=== PATIENT | male | born 1935 | race Caucasian/White ===

== ENCOUNTER 2017-12-07 11:39 | Emergency (ER) | payer MEDICARE ==
[2017-12-07] MEDS ORDERED: Furosemide 40 MG/4 ML VIAL ONE (12:19)
[2017-12-07 12:38] LABS: #Basophils 0.1 thou/uL (0.0-0.2); #Eosinphils 0.1 thou/uL (0.0-0.7); #Lymphocytes 0.9 thou/uL (1.20-3.40); #Monocytes 0.8 thou/uL (0.11-0.59); %Basophils 0.7 % (0.0-1.0); %Eosinophils 1.1 % (0.0-10.0); %Lymphocytes 10.5 % (21.0-51.0); %Monocytes 8.7 % (0.0-10.0); Hemoglobin 14.1 g/dL (14.0-18.0); Mean Corpuscular HGB CONC 33.3 g/dL (32.0-36.0); Mean Corpuscular Hemoglobin 29.1 pg (27.0-31.0); Mean Corpuscular Volume 87.5 fl (80.0-94.0); Mean Platelet Volume 7.4 fL (7.4-10.4); Platelet Count 212 thou/uL (130-400); RBC Distribution Width 12.1 % (11.5-14.5); Red Blood Cell (RBC) Count 4.86 mill/uL (4.70-6.10); White Blood Cell (WBC) Count 8.9 thou/uL (4.8-10.8)
[2017-12-07 12:44] LABS: PTT 29.4 SEC (22.9-36.1); Prothrombin Time 13.7 SEC (12.0-14.7)
[2017-12-07 12:48] LABS: CKMB 1.6 ng/mL (0-6.6); Troponin I Less than 0.010 ng/mL (< 0.028)
[2017-12-07 12:52] LABS: ALT (SGPT) 6 U/L (8-55); AST (SGOT) 17 U/L (5-34); Albumin 3.5 g/dL (3.4-4.8); Alkaline Phosphatase 73 U/L (40-150); Anion Gap 15 mmol/L (10-20); BUN (Urea Nitrogen) 25 mg/dL (8.4-25.7); Bilirubin, Total 0.6 mg/dL (0.2-1.2); CK (CPK) 50 U/L (30-200); Calc. Creatinine Clearance 0 mL/min (70-130); Calcium 8.9 mg/dL (7.8-10.44); Carbon Dioxide 24 mmol/L (23-31); Chloride 100 mmol/L (98-107); Estimated GFR-MDRD 45; Glucose 171 mg/dL (83-110); Potassium 4.1 mmol/L (3.5-5.1); Protein, Total 6.5 g/dL (5.8-8.1); Sodium 135 mmol/L (136-145)
--- NOTE | 2017-12-07 13:03 | RAD ---
CHEST ONE VIEW: HISTORY: Chest pain. COMPARISON: None. FINDINGS: The lungs are clear. No pneumothorax or effusion. The cardiac silhouette and mediastinal contour ar e within normal limits. IMPRESSION: No acute intrathoracic abnormality. POS: [facility]
== END 2017-12-07 13:45 | disposition home or self-care (01) ==
LOC: NAV ERS 11:39
DX: I89.0 Lymphedema, not elsewhere classified (principal); N40.0 Benign prostatic hyperplasia without lower urinary tract symptoms; L03.115 Cellulitis of right lower limb; E66.9 Obesity, unspecified; E11.9 Type 2 diabetes mellitus without complications; E78.5 Hyperlipidemia, unspecified; I10 Essential (primary) hypertension; M19.90 Unspecified osteoarthritis, unspecified site; Z79.84 Long term (current) use of oral hypoglycemic drugs; Z79.899 Other long term (current) drug therapy
CPT/HCPCS: 71045; 80053; 82550; 82553; 83880; 84484; 85025; 85610; 85730; 93005; 94760; 96374; J1940

== ENCOUNTER 2017-12-07 23:51 | Emergency (ER) | payer MEDICARE ==
[2017-12-08] MEDS ORDERED: Tamsulosin HCl 0.4 MG CAP ONE (00:40)
== END 2017-12-08 01:00 | disposition home or self-care (01) ==
LOC: NAV ERS 23:51
DX: R33.9 Retention of urine, unspecified (principal); G20 Parkinson's disease; E11.9 Type 2 diabetes mellitus without complications; E78.5 Hyperlipidemia, unspecified; I10 Essential (primary) hypertension; M19.90 Unspecified osteoarthritis, unspecified site; Z79.899 Other long term (current) drug therapy; Z79.84 Long term (current) use of oral hypoglycemic drugs
CPT/HCPCS: 51702

== ENCOUNTER 2018-03-22 16:00 | Inpatient (IN) | payer MEDICARE ==
[2018-03-22 16:33] VITALS: BMI 30.5
[2018-03-22] MEDS ORDERED: Dextrose 5% in Water 1,000 ML IV PRN (18:23)
[2018-03-22] MEDS ORDERED: Dextrose 50% Abboject 50 ML SYRINGE SLOW IVP PRN (18:23)
[2018-03-22] MEDS ORDERED: HumaLOG 300 UNITS/3 ML VIAL SC PRN (18:23)
[2018-03-22] MEDS: Doxycycline 100 MG CAP PO SCH (20:25)
[2018-03-22] MEDS: Tamsulosin HCl 0.4 MG CAP PO SCH (20:25)
[2018-03-22] MEDS: Ciprofloxacin 500 MG TAB PO SCH (20:25)
[2018-03-22] MEDS: Finasteride 5 MG TAB PO SCH (20:25)
[2018-03-22] MEDS: TROSPIUM 20 MG TABLET PO SCH (20:25)
[2018-03-22] MEDS: Senokot S 8.6-50 MG TAB PO SCH (20:25)
[2018-03-22] MEDS: Carbidopa/Levodopa 25-250 mg Tablet PO SCH (20:25)
[2018-03-22] MEDS: Pravastatin Sodium 40 MG TAB PO SCH (20:26)
[2018-03-22] MEDS: Nystatin Powder 15 GM BOT TOP SCH (20:26)
[2018-03-22] MEDS ORDERED: Famotidine 20 MG TAB PO SCH (21:00)
--- NOTE | 2018-03-23 00:13 | HP ---
CHIEF COMPLAINT: Recent urinary tract infection with bacteremia and cellulitis with resolving acute kidney injury for physical therapy. BRIEF HISTORY: This is a very pleasant 82-year-old male who is a patient of Dr. Lisa Dunaway ey was admitted to [facility] on with gross hematuria and lower abdominal discomfor t. He has a history of chronic indwelling catheter secondary to benign prostatic hypertrophy. He ap parently had the catheter changed a week prior to admission and at home the catheter stopped draining . Apparently, home health adjusted positioning and it started draining again. The day prior to admi ssion, he started noticing hematuria with discomfort and so presented to the emergency room. He was worked up and diagnosed with catheter associated UTI as well as cellulitis of the perineal area along with acute kidney injury on chronic kidney disease stage 3 and admitted to the hospital. He was cameron ated with IV antibiotics. His urine cultures grew Pseudomonas and Klebsiella and he was also seen by Infectious Disease who recommended switching him to oral ciprofloxacin. His renal functions continu ed to improve. He was kept off his metformin and lisinopril. He was deemed to be a candidate for [facility] admission for continuing antibiotic as well as the evaluation by PT and OT. He is resting comforta debi in bed and denies any concerns. He is just finishing up his dinner. His is in the room. H e denies any fever or chills. He denies any chest pain or shortness of breath. Denies any nausea, v omiting or diarrhea. PAST MEDICAL HISTORY: 1. Diabetes mellitus type 2. 2. Hypertension. 3. Dyslipidemia. 4. Parkinson's disease. 5. Degenerative joint disease. 6. History of bladder cancer. 7. Benign prostatic hypertrophy and urinary retention requiring chronic indwelling Fletcher. 8. Gastroesophageal reflux disease. PAST SURGICAL HISTORY: 1. Appendectomy. 2. Bladder cancer removal. 3. Tonsillectomy. 4. Adenoidectomy. 5. Hip surgery. 6. Cholecystectomy. 7. Soft tissue mass excision. ALLERGIES: LEVAQUIN. It is more like calf muscle cramping more of an adverse reaction than a true a llergy. FAMILY HISTORY: Positive for hypertension, diabetes mellitus, and cerebrovascular accident. PSYCHOSOCIAL HISTORY: No tobacco or alcohol abuse. He lives at home with his . MEDICATIONS: He has been transferred here on the following medications; 1. Sinemet 25/250 one tablet t.i.d. 2. Ciprofloxacin 500 mg p.o. b.i.d. until 04/01/2018. 3. Doxycycline 100 mg p.o. b.i.d. until 03/27/2018. 4. Pepcid 20 mg b.i.d. 5. Proscar 5 mg daily. 6. Amaryl 0.5 mg p.o. t.i.d. 7. Zestril 2.5 mg daily. 8. Procardia-XL 30 mg daily. 9. MiraLax 17 grams in 8 ounces of water daily. 10. Pravachol 40 mg daily. 11. Florastor 250 mg daily. 12. Senokot-S 1 tablet b.i.d. 13. Flomax 0.4 mg daily. 14. Trospium 20 mg b.i.d. REVIEW OF SYSTEMS: CARDIOVASCULAR SYSTEM: Denies any chest pain, shortness of breath, palpitations, paroxysmal nocturna l dyspnea, orthopnea, pedal edema. RESPIRATORY SYSTEM: Denies any chronic cough, expectoration or pleuritic chest pain. GASTROINTESTINAL SYSTEM: Denies any nausea, vomiting, diarrhea, constipation, hematemesis, melena, h ematochezia. GENITOURINARY SYSTEM: Denies any frequency, urgency, dysuria, hematuria, except for this recent epis ode. CENTRAL NERVOUS SYSTEM: Generalized weakness and tremors. HEENT: No difficulty with speech. He is hard of hearing. No difficulty with swallowing. SKIN: De nies any rash. PHYSICAL EXAMINATION: GENERAL APPEARANCE: This is a pleasant 82-year-old male in no apparent distress. He respo nds appropriately to questions. He is just finishing his dinner. His is in the room. VITAL SIGNS: He is afebrile, heart rate 76, respirations 20, oxygen saturation 94% on room air, bloo d pressure 126/60. HEENT: Normocephalic, atraumatic. Pupils are equal and reactive to light and accommodation. NECK: No JVD, thyromegaly or adenopathy, throat exudates or carotid bruits. CARDIOVASCULAR SYSTEM: S1, S2 plus, rate and rhythm regular. RESPIRATORY SYSTEM: Normal vesicular breath sounds in all lung villeda. ABDOMEN: Soft, nontender, bowel sounds heard in all quadrants. EXTREMITIES: Without cyanosis or clubbing. Trace edema. CENTRAL NERVOUS SYSTEM: Patrolling tremor is present. Generalized weakness. Fletcher catheter in plac e. LABORATORY DATA: Blood sugar is 137. Other laboratory values are pending, but from the other hospit al, last CBC was done on 03/20/2018 and white count was 8.8, hemoglobin and hematocrit is 12.7 and 39 .4. Last chemistry was also done on 03/20/2018. Sodium 139, potassium 4.3, BUN and creatinine is 18 and 1.32, creatinine was as high as 1.88. IMPRESSION: 1. Resolving Pseudomonas and Klebsiella urinary tract infection. 2. Resolving perineal cellulitis. 3. Diabetes mellitus type 2. 4. Hypertension. 5. Dyslipidemia. 6. Benign prostatic hypertrophy. 7. Chronic urinary retention requiring Fletcher catheter. 8. Gastroesophageal reflux disease. 9. Parkinson's. 10. Deconditioning. PLAN: 1. Continue current medications. 2. Nutritional support with 1800 calorie Heart healthy ADA diet. 3. Accu-Cheks with sliding scale coverage. 4. Deep venous thrombosis and stress ulcer prophylaxis. 5. Decubitus precautions. 6. Consult physical therapy and occupational therapy. 7. Fletcher catheter care. 8. Decubitus precautions. 9. CBC and BMP in the morning. 10. Anticipate resuming his metformin in the morning if his creatinine continues to be below 1.4. D iscussed with the patient and in detail and all questions answered. Discussed with nursing as chu iqbal.
[2018-03-23] MEDS: Ciprofloxacin 500 MG TAB PO SCH ×2 (05:10→20:02)
[2018-03-23 06:08] LABS: #Basophils 0.1 thou/uL (0.0-0.2); #Eosinphils 0.8 thou/uL (0.0-0.7); #Lymphocytes 1.4 thou/uL (1.20-3.40); #Monocytes 0.8 thou/uL (0.11-0.59); #Neutrophils 5.6 thou/uL (1.40-6.50); %Basophils 0.6 % (0.0-1.0); %Eosinophils 8.7 % (0.0-10.0); %Lymphocytes 16.6 % (21.0-51.0); %Monocytes 9.5 % (0.0-10.0); %Neutrophils 64.6 % (42.0-75.0); Hemoglobin 12.4 g/dL (14.0-18.0); Mean Corpuscular HGB CONC 31.9 g/dL (32.0-36.0); Mean Corpuscular Hemoglobin 28.3 pg (27.0-31.0); Mean Corpuscular Volume 88.6 fL (78.0-98.0); Mean Platelet Volume 5.9 fL (7.4-10.4); Platelet Count 384 thou/uL (130-400); RBC Distribution Width 12.4 % (11.5-14.5); Red Blood Cell (RBC) Count 4.37 mill/uL (4.70-6.10); White Blood Cell (WBC) Count 8.7 thou/uL (4.8-10.8)
[2018-03-23 06:15] LABS: Anion Gap 13 mmol/L (10-20); BUN (Urea Nitrogen) 16 mg/dL (8.4-25.7); Calc. Creatinine Clearance 58 mL/min (70-130); Calcium 8.6 mg/dL (7.8-10.44); Carbon Dioxide 25 mmol/L (23-31); Chloride 107 mmol/L (98-107); Estimated GFR-MDRD 48; Glucose 131 mg/dL (83-110); Potassium 3.8 mmol/L (3.5-5.1); Sodium 141 mmol/L (136-145)
[2018-03-23] MEDS ORDERED: Lisinopril 5 MG TAB PO SCH (09:00)
[2018-03-23] MEDS: Senokot S 8.6-50 MG TAB PO SCH ×2 (09:22→20:02)
[2018-03-23] MEDS: Doxycycline 100 MG CAP PO SCH ×2 (09:22→20:01)
[2018-03-23] MEDS: Carbidopa/Levodopa 25-250 mg Tablet PO SCH ×3 (09:22→20:03)
[2018-03-23] MEDS: Saccharomyces boulardii 250 MG CAP PO SCH (09:22)
[2018-03-23] MEDS: Polyethylene Glycol 3350 17 GM Packet PO SCH (09:22)
[2018-03-23] MEDS: Glimepiride 2 MG TAB PO SCH ×3 (09:22→20:02)
[2018-03-23] MEDS: TROSPIUM 20 MG TABLET PO SCH ×2 (09:23→20:01)
[2018-03-23] MEDS: NIFEdipine XL 30 MG TAB PO SCH (09:23)
[2018-03-23] MEDS: Nystatin Powder 15 GM BOT TOP SCH ×2 (09:25→20:04)
--- NOTE | 2018-03-23 09:26 | PRG ---
DATE OF SERVICE: 03/23/2018 SUBJECTIVE: Mr. Severino is doing well except for some heartburn. He apparently was told by his graciela rologist to not take any Tums or Rolaids, but stick with medicines like Zantac or Pepcid. I advised him that he is on Pepcid and he got it last night. He is tolerating his Fletcher catheter. No blood. No other complaints. No family at bedside. OBJECTIVE: VITAL SIGNS: He is afebrile, heart rate 81, respirations 20, oxygen saturation 96% on room air, bloo d pressure 139/67. CARDIOVASCULAR: S1, S2 plus. RESPIRATORY SYSTEM: Normal vesicular breath sounds. ABDOMEN: Soft, nontender, bowel sounds heard in all quadrants. EXTREMITIES: Without cyanosis or clubbing. CENTRAL NERVOUS SYSTEM: Generalized weakness. LABORATORY VALUES: White count is 8.7, H&H is 12.4 and 38.7. Sodium 141, potassium 3.8, BUN and cre atinine 16 and 1.40. Blood sugars are 137, 199, 113 and 131. IMPRESSION: 1. Chronic kidney disease stage 2. 2. Diabetes mellitus type 2, well controlled. 3. Hypertension. 4. Dyslipidemia. 5. Parkinson's disease. 6. Benign prostatic hypertrophy with chronic urinary retention requiring Fletcher catheter. 7. History of bladder cancer. 8. Gastroesophageal reflux disease. PLAN: 1. Increase Pepcid to b.i.d. 2. Continue 1800 calorie Heart healthy ADA diet. 3. DVT and stress ulcer prophylaxis. 4. Decubitus precautions. 5. Routine laboratory values. 6. Physical therapy and occupational therapy. 7. Discussed with patient in detail. All questions answered.
[2018-03-23] MEDS ORDERED: Famotidine 20 MG TAB PO SCH (09:30)
[2018-03-23] MEDS: Famotidine 20 MG TAB PO SCH (20:01)
[2018-03-23] MEDS: Finasteride 5 MG TAB PO SCH (20:02)
[2018-03-23] MEDS: Tamsulosin HCl 0.4 MG CAP PO SCH (20:02)
[2018-03-23] MEDS: Pravastatin Sodium 40 MG TAB PO SCH (20:03)
[2018-03-24] MEDS: Ciprofloxacin 500 MG TAB PO SCH ×2 (05:22→20:31)
[2018-03-24] MEDS: Doxycycline 100 MG CAP PO SCH ×2 (09:26→20:30)
[2018-03-24] MEDS: Famotidine 20 MG TAB PO SCH ×2 (09:26→20:31)
[2018-03-24] MEDS: Nystatin Powder 15 GM BOT TOP SCH ×2 (09:26→20:31)
[2018-03-24] MEDS: Carbidopa/Levodopa 25-250 mg Tablet PO SCH ×3 (09:26→20:30)
[2018-03-24] MEDS: Polyethylene Glycol 3350 17 GM Packet PO SCH (09:26)
[2018-03-24] MEDS: Saccharomyces boulardii 250 MG CAP PO SCH (09:26)
[2018-03-24] MEDS: NIFEdipine XL 30 MG TAB PO SCH (09:26)
[2018-03-24] MEDS: TROSPIUM 20 MG TABLET PO SCH ×2 (09:27→20:30)
[2018-03-24] MEDS: Senokot S 8.6-50 MG TAB PO SCH ×2 (09:27→20:31)
[2018-03-24] MEDS: Glimepiride 2 MG TAB PO SCH ×3 (09:27→20:30)
--- NOTE | 2018-03-24 13:49 | PRG ---
DATE OF SERVICE: 03/24/2018 SUBJECTIVE: Mr. Severino is up in his bed. He denies any complaints. His and daughter are in the room. His main concern is constipation. He is also having a rash on his back and again the main issue is that he lays on his back most of the day and there is really not enough circulation going o nto his skin. OBJECTIVE: VITAL SIGNS: He is afebrile, heart rate is 86, respirations 20, oxygen saturation 95% on room air, b lood pressure 127/63. CARDIOVASCULAR SYSTEM: S1, S2 plus. RESPIRATORY SYSTEM: Normal vesicular breath sounds. ABDOMEN: Soft, nontender, bowel sounds heard in all quadrants. EXTREMITIES: Without cyanosis or clubbing. CENTRAL NERVOUS SYSTEM: Generalized weakness, some rigidity is present. LABORATORY VALUES: Blood sugars are 174, 116, 205, 110 and 139. Examination of the back does show a maculopapular rash consistent with more of an irritant dermatitis. IMPRESSION: 1. Resolving urinary and cellulitis. 2. Renal insufficiency. 3. Diabetes mellitus type 2, well controlled. 4. Constipation. 5. Dyslipidemia. 6. Parkinson's disease. 7. Benign prostatic hypertrophy with urinary retention. PLAN: 1. Add Dulcolax suppository. 2. Continue 1800 calorie Heart healthy ADA diet. 3. DVT and stress ulcer prophylaxis. 4. Decubitus precautions. 5. Accu-Cheks and sliding scale coverage. 6. Routine laboratory values. 7. Discussed with patient and family in detail. All questions answered.
[2018-03-24] MEDS: Bisacodyl 10 MG SUPP PR PRN (14:27)
[2018-03-24] MEDS: Tamsulosin HCl 0.4 MG CAP PO SCH (20:30)
[2018-03-24] MEDS: Pravastatin Sodium 40 MG TAB PO SCH (20:31)
[2018-03-24] MEDS: Finasteride 5 MG TAB PO SCH (20:31)
[2018-03-25] MEDS: Ciprofloxacin 500 MG TAB PO SCH ×2 (05:50→20:02)
[2018-03-25] MEDS: Doxycycline 100 MG CAP PO SCH ×2 (09:05→20:02)
[2018-03-25] MEDS: TROSPIUM 20 MG TABLET PO SCH ×2 (09:05→20:02)
[2018-03-25] MEDS: NIFEdipine XL 30 MG TAB PO SCH (09:05)
[2018-03-25] MEDS: Carbidopa/Levodopa 25-250 mg Tablet PO SCH ×3 (09:05→20:02)
[2018-03-25] MEDS: Saccharomyces boulardii 250 MG CAP PO SCH (09:05)
[2018-03-25] MEDS: Polyethylene Glycol 3350 17 GM Packet PO SCH (09:05)
[2018-03-25] MEDS: Senokot S 8.6-50 MG TAB PO SCH ×2 (09:05→20:02)
[2018-03-25] MEDS: Glimepiride 2 MG TAB PO SCH ×3 (09:05→20:02)
[2018-03-25] MEDS: Famotidine 20 MG TAB PO SCH ×2 (09:05→20:02)
[2018-03-25] MEDS: Nystatin Powder 15 GM BOT TOP SCH ×2 (09:06→19:59)
--- NOTE | 2018-03-25 13:07 | PRG ---
DATE OF SERVICE: 03/25/2018 SUBJECTIVE: Mr. Sevreino is doing well. Denies any complaints, resting comfortably. He did have a good bowel movement. No family at bedside, discussed with nursing. OBJECTIVE: VITAL SIGNS: He is afebrile, heart rate is 85, respirations 18, oxygen saturation 93% on room air, b lood pressure 126/67. CARDIOVASCULAR: S1, S2 plus. RESPIRATORY SYSTEM: Normal vesicular breath sounds. ABDOMEN: Soft, nontender, bowel sounds heard in all quadrants. EXTREMITIES: Without cyanosis or clubbing. His back rash is improved. We are continuing to use a m oisturizing lotion. LABORATORY VALUES: Blood sugars are 127, 170, 91, and 136. IMPRESSION: 1. Resolving urinary tract infection. 2. Resolving cellulitis. 3. Diabetes mellitus type 2. 4. Parkinson's disease. 5. Resolved constipation. 6. Deconditioning. PLAN: 1. Continue current medications. 2. Nutritional support. 3. DVT and stress ulcer prophylaxis. 4. Decubitus precautions. 5. Bowel regimen. 6. Monitor blood sugar. 7. Discussed with patient in detail. All questions answered. Continue therapy.
[2018-03-25] MEDS: Finasteride 5 MG TAB PO SCH (20:02)
[2018-03-25] MEDS: Tamsulosin HCl 0.4 MG CAP PO SCH (20:02)
[2018-03-25] MEDS: Pravastatin Sodium 40 MG TAB PO SCH (20:03)
[2018-03-26] MEDS: Ciprofloxacin 500 MG TAB PO SCH ×2 (06:32→20:47)
[2018-03-26] MEDS: Carbidopa/Levodopa 25-250 mg Tablet PO SCH ×3 (08:37→20:53)
[2018-03-26] MEDS: Doxycycline 100 MG CAP PO SCH ×2 (08:38→20:54)
[2018-03-26] MEDS: Glimepiride 2 MG TAB PO SCH ×3 (08:38→20:47)
[2018-03-26] MEDS: Famotidine 20 MG TAB PO SCH (08:38)
[2018-03-26] MEDS: NIFEdipine XL 30 MG TAB PO SCH (08:39)
[2018-03-26] MEDS: Senokot S 8.6-50 MG TAB PO SCH ×2 (08:40→20:47)
[2018-03-26] MEDS: Saccharomyces boulardii 250 MG CAP PO SCH (08:40)
[2018-03-26] MEDS: Nystatin Powder 15 GM BOT TOP SCH ×2 (08:40→20:48)
[2018-03-26] MEDS: Polyethylene Glycol 3350 17 GM Packet PO SCH (08:40)
[2018-03-26] MEDS: TROSPIUM 20 MG TABLET PO SCH ×2 (08:40→20:54)
--- NOTE | 2018-03-26 14:44 | PRG ---
DATE OF SERVICE: 03/26/2018 SUBJECTIVE: Mr. Sevreino is doing well. He is working with therapy. His is in the room. She would prefer him to take the ranitidine OTC instead of the Pepcid and I advised her to just bring it from home and have the nurses give it to him. No other concerns or questions. OBJECTIVE: VITAL SIGNS: He is afebrile, heart rate 75, respirations 18, oxygen saturation 95% on room air, bloo d pressure 132/63. CARDIOVASCULAR: S1, S2 plus. RESPIRATORY SYSTEM: Normal vesicular breath sounds. ABDOMEN: Soft, nontender, bowel sounds heard in all quadrants. EXTREMITIES: Without cyanosis or clubbing. CENTRAL NERVOUS SYSTEM: Generalized weakness. LABORATORY VALUES: Blood sugars are 136, 129, 178, 91 and 138. IMPRESSION: 1. Resolving urinary tract infection and cellulitis. 2. Parkinson's disease. 3. Diabetes mellitus type 2. 4. Resolved constipation. 5. Renal insufficiency. 6. Deconditioning. PLAN: 1. Continue current medications. 2. A 1800 calorie heart healthy ADA diet. 3. Accu-Cheks with sliding scale coverage. 4. Continue antibiotics until the full course is done. 5. Monitor blood sugars. 6. Physical therapy. 7. Bowel regimen. 8. Routine laboratory values. I discussed with the patient and in detail. All questions answered.
[2018-03-26] MEDS: RANITIDINE 150 MG PO SCH (16:47)
[2018-03-26] MEDS: Finasteride 5 MG TAB PO SCH (20:47)
[2018-03-26] MEDS: Tamsulosin HCl 0.4 MG CAP PO SCH (20:48)
[2018-03-26] MEDS: Pravastatin Sodium 40 MG TAB PO SCH (20:54)
[2018-03-27 05:23] LABS: #Basophils 0.1 thou/uL (0.0-0.2); #Eosinphils 0.9 thou/uL (0.0-0.7); #Monocytes 0.9 thou/uL (0.11-0.59); #Neutrophils 4.7 thou/uL (1.40-6.50); %Basophils 1.4 % (0.0-1.0); %Eosinophils 10.2 % (0.0-10.0); %Monocytes 10.7 % (0.0-10.0); %Neutrophils 54.8 % (42.0-75.0); Mean Corpuscular HGB CONC 31.9 g/dL (32.0-36.0); Mean Corpuscular Hemoglobin 28.3 pg (27.0-31.0); Mean Corpuscular Volume 88.6 fL (78.0-98.0); Mean Platelet Volume 5.7 fL (7.4-10.4); Platelet Count 426 thou/uL (130-400); RBC Distribution Width 12.7 % (11.5-14.5); Red Blood Cell (RBC) Count 4.61 mill/uL (4.70-6.10); White Blood Cell (WBC) Count 8.6 thou/uL (4.8-10.8)
[2018-03-27 05:35] LABS: Anion Gap 11 mmol/L (10-20); BUN (Urea Nitrogen) 20 mg/dL (8.4-25.7); Calc. Creatinine Clearance 55 mL/min (70-130); Calcium 9.1 mg/dL (7.8-10.44); Carbon Dioxide 26 mmol/L (23-31); Chloride 106 mmol/L (98-107); Estimated GFR-MDRD 45; Glucose 87 mg/dL (83-110); Potassium 4.3 mmol/L (3.5-5.1); Sodium 139 mmol/L (136-145)
[2018-03-27] MEDS: Ciprofloxacin 500 MG TAB PO SCH ×2 (05:44→20:43)
[2018-03-27] MEDS: Carbidopa/Levodopa 25-250 mg Tablet PO SCH ×3 (08:53→20:43)
[2018-03-27] MEDS: Doxycycline 100 MG CAP PO SCH ×2 (08:53→20:43)
[2018-03-27] MEDS: NIFEdipine XL 30 MG TAB PO SCH (08:54)
[2018-03-27] MEDS: Polyethylene Glycol 3350 17 GM Packet PO SCH (08:54)
[2018-03-27] MEDS: Saccharomyces boulardii 250 MG CAP PO SCH (08:54)
[2018-03-27] MEDS: Glimepiride 2 MG TAB PO SCH ×3 (08:54→20:43)
[2018-03-27] MEDS: TROSPIUM 20 MG TABLET PO SCH ×2 (08:55→20:44)
[2018-03-27] MEDS: Senokot S 8.6-50 MG TAB PO SCH ×2 (08:55→20:44)
[2018-03-27] MEDS: Nystatin Powder 15 GM BOT TOP SCH ×2 (08:57→20:44)
--- NOTE | 2018-03-27 13:28 | PRG ---
DATE OF SERVICE: 03/27/2018 SUBJECTIVE: Mr. Severino is doing well. He just finished his lunch. No family at bedside, discusse d with nursing. OBJECTIVE: VITAL SIGNS: He is afebrile, heart rate is 76, respirations 20, oxygen saturation 94% on room air, b lood pressure 130/69. CARDIOVASCULAR: S1, S2 plus. RESPIRATORY SYSTEM: Normal vesicular breath sounds. ABDOMEN: Soft, obese, nontender. Bowel sounds heard in all quadrants. EXTREMITIES: Without cyanosis or clubbing. CENTRAL NERVOUS SYSTEM: Improving deconditioning. : Fletcher catheter in place and a Fletcher bag with no evidence for hematuria. LABORATORY VALUES: Blood sugars are 109, 136, 135. Electrolytes: Sodium 139, potassium 4.3, BUN an d creatinine 20 and 1.48. White count is 8.6, H&H is 13 and 40.9. IMPRESSION: 1. Chronic kidney disease stage 3. 2. Diabetes mellitus type 2, well controlled. 3. Dyslipidemia. 4. Benign prostatic hypertrophy. 5. Parkinson's disease. 6. Deconditioning. PLAN: 1. Continue current medications. 2. Keep him off his metformin and lisinopril. 3. Accu-Cheks with sliding scale coverage. 4. Deep venous thrombosis and stress ulcer prophylaxis. 5. Decubitus precautions. 6. Routine laboratory values. 7. Nutritional support. 8. Physical therapy and occupational therapy. 9. Discussed with patient and nursing in detail and all questions answered.
[2018-03-27] MEDS: RANITIDINE 150 MG PO SCH (17:44)
[2018-03-27] MEDS: Finasteride 5 MG TAB PO SCH (20:44)
[2018-03-27] MEDS: Tamsulosin HCl 0.4 MG CAP PO SCH (20:44)
[2018-03-27] MEDS: Pravastatin Sodium 40 MG TAB PO SCH (20:44)
[2018-03-28] MEDS: Ciprofloxacin 500 MG TAB PO SCH ×2 (05:44→20:17)
[2018-03-28] MEDS: TROSPIUM 20 MG TABLET PO SCH ×2 (09:48→20:20)
[2018-03-28] MEDS: Carbidopa/Levodopa 25-250 mg Tablet PO SCH ×3 (09:48→20:18)
[2018-03-28] MEDS: Glimepiride 2 MG TAB PO SCH ×3 (09:49→20:18)
[2018-03-28] MEDS: Saccharomyces boulardii 250 MG CAP PO SCH (09:49)
[2018-03-28] MEDS: NIFEdipine XL 30 MG TAB PO SCH (09:49)
[2018-03-28] MEDS: Nystatin Powder 15 GM BOT TOP SCH ×2 (09:51→20:19)
[2018-03-28] MEDS: Polyethylene Glycol 3350 17 GM Packet PO SCH (09:51)
[2018-03-28] MEDS: Senokot S 8.6-50 MG TAB PO SCH ×2 (09:51→20:19)
[2018-03-28] MEDS: RANITIDINE 150 MG PO SCH (17:17)
[2018-03-28] MEDS: Finasteride 5 MG TAB PO SCH (20:18)
[2018-03-28] MEDS: Pravastatin Sodium 20 MG TAB PO SCH (20:19)
[2018-03-28] MEDS: Tamsulosin HCl 0.4 MG CAP PO SCH (20:19)
[2018-03-29] MEDS: Ciprofloxacin 500 MG TAB PO SCH ×2 (05:22→20:05)
[2018-03-29] MEDS: Saccharomyces boulardii 250 MG CAP PO SCH (08:57)
[2018-03-29] MEDS: Carbidopa/Levodopa 25-250 mg Tablet PO SCH ×3 (08:57→20:05)
[2018-03-29] MEDS: Senokot S 8.6-50 MG TAB PO SCH ×2 (08:57→20:06)
[2018-03-29] MEDS: TROSPIUM 20 MG TABLET PO SCH ×2 (08:57→20:07)
[2018-03-29] MEDS: NIFEdipine XL 30 MG TAB PO SCH (08:57)
[2018-03-29] MEDS: Glimepiride 2 MG TAB PO SCH ×2 (08:58→14:56)
[2018-03-29] MEDS: Polyethylene Glycol 3350 17 GM Packet PO SCH (08:59)
[2018-03-29] MEDS: Bisacodyl 10 MG SUPP PR PRN (08:59)
[2018-03-29] MEDS: Nystatin Powder 15 GM BOT TOP SCH ×2 (08:59→20:06)
--- NOTE | 2018-03-29 13:08 | PRG ---
DATE OF SERVICE: 03/29/2018 SUBJECTIVE: Mr. Severino is up in his chair, just finishing his lunch. His is in the room. He denies any concerns except for some knee pain with therapy. He apparently has been diagnosed with s evere DJD and he has had multiple steroid injections in his knees. He apparently was told that he wa s not a good surgical candidate. states that he is still not strong enough to go home. He has not been discharged by physical therapy yet. I advised her to go to the weekly meeting next Monday and depending upon his progress, we can plan on his discharge either to home or to a [facility] facility. OBJECTIVE: VITAL SIGNS: He is afebrile, heart rate 87, respirations 19, oxygen saturation 96% on room air, bloo d pressure 129/65. CARDIOVASCULAR: S1, S2 plus. RESPIRATORY: Normal vesicular breath sounds. ABDOMEN: Soft, nontender, bowel sounds heard in all quadrants. EXTREMITIES: Without cyanosis or clubbing. Peripheral pulses are palpable. CENTRAL NERVOUS SYSTEM: Generalized weakness. LABORATORY VALUES: His blood sugars are 93, 100, 139, 81 and 105. IMPRESSION: 1. Resolving urinary tract infection and cellulitis. 2. Parkinson's disease. 3. Diabetes mellitus type 2. 4. 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 5. Dyslipidemia. 6. Hypertension. 7. Benign prostatic hypertrophy and urinary retention requiring Fletcher catheter. PLAN: 1. Continue physical therapy and occupational therapy. 2. Accu-Cheks with sliding scale coverage. 3. 1800-calorie heart healthy ADA diet. 4. DVT and stress ulcer prophylaxis. 5. Fletcher catheter care. 6. Nutritional support. 7. Discussed with the patient and in detail. All questions answered.
[2018-03-29] MEDS: RANITIDINE 150 MG PO SCH (17:46)
[2018-03-29] MEDS: Finasteride 5 MG TAB PO SCH (20:05)
[2018-03-29] MEDS: Pravastatin Sodium 20 MG TAB PO SCH (20:06)
[2018-03-29] MEDS: Tamsulosin HCl 0.4 MG CAP PO SCH (20:06)
[2018-03-30] MEDS: Ciprofloxacin 500 MG TAB PO SCH ×2 (05:30→20:45)
[2018-03-30] MEDS: Saccharomyces boulardii 250 MG CAP PO SCH (08:45)
[2018-03-30] MEDS: Carbidopa/Levodopa 25-250 mg Tablet PO SCH ×3 (08:45→20:45)
[2018-03-30] MEDS: Polyethylene Glycol 3350 17 GM Packet PO SCH (08:45)
[2018-03-30] MEDS: Glimepiride 2 MG TAB PO SCH ×3 (08:45→16:49)
[2018-03-30] MEDS: NIFEdipine XL 30 MG TAB PO SCH (08:46)
[2018-03-30] MEDS: TROSPIUM 20 MG TABLET PO SCH ×2 (08:46→20:45)
[2018-03-30] MEDS: Nystatin Powder 15 GM BOT TOP SCH ×2 (08:46→20:46)
[2018-03-30] MEDS: Senokot S 8.6-50 MG TAB PO SCH ×2 (08:46→20:45)
[2018-03-30] MEDS: RANITIDINE 150 MG PO SCH (16:49)
[2018-03-30] MEDS: Pravastatin Sodium 20 MG TAB PO SCH (20:45)
[2018-03-30] MEDS: Finasteride 5 MG TAB PO SCH (20:45)
[2018-03-30] MEDS: Tamsulosin HCl 0.4 MG CAP PO SCH (20:45)
[2018-03-31] MEDS: Acetaminophen 500 MG TAB PO PRN ×4 (01:56→20:25)
[2018-03-31] MEDS: Ciprofloxacin 500 MG TAB PO SCH ×2 (05:29→20:25)
[2018-03-31] MEDS: NIFEdipine XL 30 MG TAB PO SCH (09:11)
[2018-03-31] MEDS: Carbidopa/Levodopa 25-250 mg Tablet PO SCH ×3 (09:11→20:24)
[2018-03-31] MEDS: Glimepiride 2 MG TAB PO SCH ×3 (09:11→17:40)
[2018-03-31] MEDS: Saccharomyces boulardii 250 MG CAP PO SCH (09:12)
[2018-03-31] MEDS: TROSPIUM 20 MG TABLET PO SCH ×2 (09:12→20:24)
[2018-03-31] MEDS: Polyethylene Glycol 3350 17 GM Packet PO SCH (09:12)
[2018-03-31] MEDS: Senokot S 8.6-50 MG TAB PO SCH ×2 (09:12→20:24)
[2018-03-31] MEDS: Nystatin Powder 15 GM BOT TOP SCH ×2 (09:22→20:25)
[2018-03-31] MEDS: HumaLOG 300 UNITS/3 ML VIAL SC PRN (11:40)
--- NOTE | 2018-03-31 15:32 | PRG ---
DATE OF SERVICE: 03/31/2018 SUBJECTIVE: Mr. Severino is doing well, sleeping, but arousable. Denies any concerns or questions. No family at bedside. OBJECTIVE: VITAL SIGNS: He is afebrile, heart rate 89, respirations 20, oxygen saturation 93% on room air, bloo d pressure 138/65. CARDIOVASCULAR: S1, S2 plus. RESPIRATORY: Normal vesicular breath sounds. ABDOMEN: Soft, nontender. Bowel sounds heard in all quadrants. EXTREMITIES: Without cyanosis or clubbing. CENTRAL NERVOUS SYSTEM: Parkinson's with generalized weakness. IMPRESSION: 1. Resolving urinary tract infection and cellulitis. 2. He is finishing his last day of antibiotic ciprofloxacin tomorrow. He is done with his doxycycli ne. 3. Diabetes mellitus type 2. 4. Hypertension. 5. Dyslipidemia. 6. Parkinson's disease. 7. Benign prostatic hypertrophy. PLAN: 1. Continue current medications. 2. Nutritional support. 3. 1800-calorie heart healthy ADA diet. 4. DVT and stress ulcer prophylaxis. 5. Decubitus precautions. 6. Routine laboratory values. 7. Discussed with patient and nursing in detail. His blood sugars are excellent at 138, 120, 134 an d 107.
[2018-03-31] MEDS: RANITIDINE 150 MG PO SCH (17:40)
[2018-03-31] MEDS: Tamsulosin HCl 0.4 MG CAP PO SCH (20:24)
[2018-03-31] MEDS: Pravastatin Sodium 20 MG TAB PO SCH (20:24)
[2018-03-31] MEDS: Finasteride 5 MG TAB PO SCH (20:25)
[2018-04-01] MEDS: Ciprofloxacin 500 MG TAB PO SCH ×2 (05:49→20:22)
[2018-04-01] MEDS: Carbidopa/Levodopa 25-250 mg Tablet PO SCH ×3 (08:49→20:22)
[2018-04-01] MEDS: Glimepiride 2 MG TAB PO SCH ×3 (08:49→16:41)
[2018-04-01] MEDS: Nystatin Powder 15 GM BOT TOP SCH ×2 (08:50→20:23)
[2018-04-01] MEDS: NIFEdipine XL 30 MG TAB PO SCH (08:50)
[2018-04-01] MEDS: Acetaminophen 500 MG TAB PO PRN (08:50)
[2018-04-01] MEDS: TROSPIUM 20 MG TABLET PO SCH ×2 (08:50→20:22)
[2018-04-01] MEDS: Senokot S 8.6-50 MG TAB PO SCH ×2 (08:50→20:22)
[2018-04-01] MEDS: Polyethylene Glycol 3350 17 GM Packet PO SCH (08:50)
[2018-04-01] MEDS: Saccharomyces boulardii 250 MG CAP PO SCH (08:50)
--- NOTE | 2018-04-01 15:48 | PRG ---
DATE OF SERVICE: 04/01/2018 SUBJECTIVE: Mr. Severino is doing well. He continues to complain of pain in his right elbow, it is more on the inside. No redness, no warmth. He states that he is having pain with extreme flexion. No family at bedside. OBJECTIVE: VITAL SIGNS: He is afebrile, heart rate is 77, respirations 18, oxygen saturation 93% on room air, b lood pressure 119/59. CARDIOVASCULAR: S1, S2 plus. RESPIRATORY SYSTEM: Normal vesicular breath sounds. ABDOMEN: Soft, nontender, bowel sounds heard in all quadrants. EXTREMITIES: Without cyanosis or clubbing. Right elbow examination shows some tenderness to the med ial aspect of his elbow. No significant warmth. CENTRAL NERVOUS SYSTEM: Generalized weakness with some pill rolling tremor. GENITOURINARY: Fletcher catheter in place. LABORATORY VALUES: Blood sugars are 112, 126, 80 and 121. IMPRESSION: 1. Possible right elbow tendinitis. 2. Diabetes mellitus type 2. 3. Hypertension. 4. Parkinson's disease. 5. Resolving urinary and cellulitis. Last date of Cipro is today. 6. Deconditioning. PLAN: 1. Trial of meloxicam 7.5 mg b.i.d. 2. Continue 1800 calorie Heart healthy ADA diet. 3. Accu-Cheks with sliding scale coverage. 4. Fletcher catheter care. 5. Deep venous thrombosis and stress ulcer prophylaxis. 6. Decubitus precautions. 7. Continue physical therapy. 8. Discussed with patient and nursing in detail. All questions answered.
[2018-04-01] MEDS: RANITIDINE 150 MG PO SCH (16:41)
[2018-04-01] MEDS: Pravastatin Sodium 20 MG TAB PO SCH (20:22)
[2018-04-01] MEDS: Meloxicam 7.5 MG TAB PO SCH (20:22)
[2018-04-01] MEDS: Finasteride 5 MG TAB PO SCH (20:22)
[2018-04-01] MEDS: Tamsulosin HCl 0.4 MG CAP PO SCH (20:22)
[2018-04-02] MEDS: Polyethylene Glycol 3350 17 GM Packet PO SCH (08:44)
[2018-04-02] MEDS: Glimepiride 2 MG TAB PO SCH ×3 (08:44→17:08)
[2018-04-02] MEDS: Carbidopa/Levodopa 25-250 mg Tablet PO SCH ×3 (08:44→20:42)
[2018-04-02] MEDS: Saccharomyces boulardii 250 MG CAP PO SCH (08:44)
[2018-04-02] MEDS: Senokot S 8.6-50 MG TAB PO SCH ×2 (08:44→20:43)
[2018-04-02] MEDS: NIFEdipine XL 30 MG TAB PO SCH (08:44)
[2018-04-02] MEDS: Nystatin Powder 15 GM BOT TOP SCH ×2 (08:45→20:44)
[2018-04-02] MEDS: Meloxicam 7.5 MG TAB PO SCH ×2 (08:45→20:43)
[2018-04-02] MEDS: TROSPIUM 20 MG TABLET PO SCH ×2 (08:45→20:43)
[2018-04-02] MEDS: Bisacodyl 10 MG SUPP PR PRN (13:05)
--- NOTE | 2018-04-02 13:06 | PRG ---
DATE OF SERVICE: 04/02/2018 SUBJECTIVE: Mr. Severino is doing well. He states that his right elbow is much improved. The Melox icam is helping. He does complain of constipation and nursing is going to give him a suppository. N o family at bedside. OBJECTIVE: VITAL SIGNS: He is afebrile, heart rate 74, respirations 18, oxygen saturation 95% on room air, bloo d pressure 118/58. CARDIOVASCULAR: S1, S2 plus. RESPIRATORY SYSTEM: Normal vesicular breath sounds. ABDOMEN: Soft, nontender, bowel sounds heard in all quadrants. EXTREMITIES: Without cyanosis or clubbing. Peripheral pulses are palpable. CENTRAL NERVOUS SYSTEM: Generalized weakness. LABORATORY VALUES: Blood sugars are 122, 1389, 95 and 142. IMPRESSION: 1. Improving right elbow tendinitis. 2. Diabetes mellitus type 2, well controlled. 3. Parkinson's disease. 4. Resolved urinary tract infection and cellulitis. 5. Hypertension. 6. Dyslipidemia. 7. Deconditioning. PLAN: 1. Continue current medications. 2. Nutritional support. 3. Bowel regimen. 4. DVT and stress ulcer prophylaxis. 5. Decubitus precautions. 6. Accu-Cheks with sliding scale coverage. 7. 1800 calorie heart healthy ADA diet. 8. Continue physical therapy and occupational therapy. 9. Meloxicam for 5 days with food. 10. Discussed with patient and nursing in detail and all questions answered.
[2018-04-02] MEDS: RANITIDINE 150 MG PO SCH (17:08)
[2018-04-02] MEDS: HumaLOG 300 UNITS/3 ML VIAL SC PRN (17:49)
[2018-04-02] MEDS: Finasteride 5 MG TAB PO SCH (20:42)
[2018-04-02] MEDS: Tamsulosin HCl 0.4 MG CAP PO SCH (20:43)
[2018-04-02] MEDS: Pravastatin Sodium 20 MG TAB PO SCH (20:43)
[2018-04-03] MEDS: Saccharomyces boulardii 250 MG CAP PO SCH (08:03)
[2018-04-03] MEDS: Polyethylene Glycol 3350 17 GM Packet PO SCH (08:03)
[2018-04-03] MEDS: Meloxicam 7.5 MG TAB PO SCH ×2 (08:03→20:34)
[2018-04-03] MEDS: Glimepiride 2 MG TAB PO SCH ×3 (08:03→16:19)
[2018-04-03] MEDS: TROSPIUM 20 MG TABLET PO SCH ×2 (08:04→20:35)
[2018-04-03] MEDS: NIFEdipine XL 30 MG TAB PO SCH (08:04)
[2018-04-03] MEDS: Senokot S 8.6-50 MG TAB PO SCH ×2 (08:04→20:35)
[2018-04-03] MEDS: Carbidopa/Levodopa 25-250 mg Tablet PO SCH ×3 (08:04→20:34)
[2018-04-03] MEDS: Nystatin Powder 15 GM BOT TOP SCH ×2 (08:04→20:35)
[2018-04-03] MEDS: RANITIDINE 150 MG PO SCH (16:19)
[2018-04-03] MEDS: Finasteride 5 MG TAB PO SCH (20:34)
[2018-04-03] MEDS: Tamsulosin HCl 0.4 MG CAP PO SCH (20:35)
[2018-04-03] MEDS: Pravastatin Sodium 20 MG TAB PO SCH (20:35)
[2018-04-04] MEDS: Carbidopa/Levodopa 25-250 mg Tablet PO SCH ×3 (08:05→20:38)
[2018-04-04] MEDS: NIFEdipine XL 30 MG TAB PO SCH (08:05)
[2018-04-04] MEDS: Glimepiride 2 MG TAB PO SCH ×3 (08:05→16:37)
[2018-04-04] MEDS: Meloxicam 7.5 MG TAB PO SCH ×2 (08:05→20:39)
[2018-04-04] MEDS: Polyethylene Glycol 3350 17 GM Packet PO SCH (08:06)
[2018-04-04] MEDS: TROSPIUM 20 MG TABLET PO SCH ×2 (08:06→20:40)
[2018-04-04] MEDS: Saccharomyces boulardii 250 MG CAP PO SCH (08:06)
[2018-04-04] MEDS: Senokot S 8.6-50 MG TAB PO SCH ×2 (08:06→20:39)
[2018-04-04] MEDS: Nystatin Powder 15 GM BOT TOP SCH ×2 (08:06→20:39)
[2018-04-04] MEDS: RANITIDINE 150 MG PO SCH (16:37)
[2018-04-04] MEDS: Finasteride 5 MG TAB PO SCH (20:38)
[2018-04-04] MEDS: Pravastatin Sodium 20 MG TAB PO SCH (20:39)
[2018-04-04] MEDS: Tamsulosin HCl 0.4 MG CAP PO SCH (20:39)
[2018-04-05] MEDS: Glimepiride 2 MG TAB PO SCH ×3 (08:40→17:05)
[2018-04-05] MEDS: Carbidopa/Levodopa 25-250 mg Tablet PO SCH ×3 (08:40→20:37)
[2018-04-05] MEDS: Saccharomyces boulardii 250 MG CAP PO SCH (08:41)
[2018-04-05] MEDS: Nystatin Powder 15 GM BOT TOP SCH ×2 (08:41→20:40)
[2018-04-05] MEDS: Senokot S 8.6-50 MG TAB PO SCH ×2 (08:41→20:38)
[2018-04-05] MEDS: Polyethylene Glycol 3350 17 GM Packet PO SCH (08:41)
[2018-04-05] MEDS: TROSPIUM 20 MG TABLET PO SCH ×2 (08:41→20:37)
[2018-04-05] MEDS: NIFEdipine XL 30 MG TAB PO SCH (08:41)
[2018-04-05] MEDS: Meloxicam 7.5 MG TAB PO SCH ×2 (08:42→20:38)
[2018-04-05] MEDS: RANITIDINE 150 MG PO SCH (17:05)
--- NOTE | 2018-04-05 18:32 | PRG ---
DATE OF SERVICE: 04/04/2018 SUBJECTIVE: The patient is an elderly male with a history of severe deconditioning, hypertension, di abetes, Parkinson disease who has been slowly improving with therapy, feeling much better at this warren e with increasing strength, cooperating well. OBJECTIVE: VITAL SIGNS: Blood pressure is 145/70, O2 sats 93% on room air, respirations 18, temperature 97.5, p ulse 83. LUNGS: Clear. CARDIAC: Shows regular rhythm. ABDOMEN: Soft and nontender. SKIN AND EXTREMITIES: Show tender right elbow which is improving. NEUROLOGICAL: No focal findings. ASSESSMENT: 1. Stable type 2 diabetes. 2. Stable Parkinson disease. 3. Resolved urinary tract infection. 4. Severe deconditioning, slowly improving. PLAN: Continue PT, OT. Continue Accu-Cheks to monitor and titrate controlled diabetes. Continue DV T, stress ulcer prophylaxis. Continue Meloxicam course to finish treatment of tendonitis.
--- NOTE | 2018-04-05 19:12 | PRG ---
DATE OF SERVICE: 04/05/2018 SUBJECTIVE: The patient feels well, increased strength, sitting in the bed, eating supper. States t hat he did walk 23 feet today. Did complain of constipation and requiring suppositories and has very large hemorrhoids. Does not complain of any further of his right elbow pain. OBJECTIVE: VITAL SIGNS: Shows temperature is 98.1, pulse 68, respirations 18, O2 sats 93% on room air, blood pr essure 110/58. Accu-Cheks range from 75-160. LUNGS: Clear. CARDIAC: Shows regular rhythm. ABDOMEN: Soft and nontender. GENITOURINARY: Shows Fletcher catheter in place. There is stage I injury of the perineal area with no real decubitus. ASSESSMENT: 1. Resolving deconditioning. 2. Stable diabetes. 3. Chronic Parkinson disease limiting therapy. 4. Urinary tract infection with Fletcher catheter still in place secondary to urinary retention, benign prostatic hypertrophy. PLAN: 1. Continue PT and OT. 2. BP urinalysis and culture, CBC and comp metabolic. 3. Continue Accu-Cheks. 4. Monitor and titrate and control diabetes. 6. Continue barrier cream to perineal. 7. Continue blood pressure control.
[2018-04-05] MEDS: Pravastatin Sodium 20 MG TAB PO SCH (20:38)
[2018-04-05] MEDS: Tamsulosin HCl 0.4 MG CAP PO SCH (20:38)
[2018-04-05] MEDS: Finasteride 5 MG TAB PO SCH (20:38)
[2018-04-06 06:24] LABS: #Basophils 0.1 thou/uL (0.0-0.2); #Eosinphils 1.3 thou/uL (0.0-0.7); #Lymphocytes 1.6 thou/uL (1.20-3.40); #Monocytes 0.7 thou/uL (0.11-0.59); #Neutrophils 2.8 thou/uL (1.40-6.50); %Eosinophils 20.7 % (0.0-10.0); %Lymphocytes 24.9 % (21.0-51.0); %Monocytes 10.7 % (0.0-10.0); %Neutrophils 42.8 % (42.0-75.0); Hemoglobin 11.6 g/dL (14.0-18.0); Mean Corpuscular HGB CONC 32.2 g/dL (32.0-36.0); Mean Corpuscular Volume 86.8 fL (78.0-98.0); Mean Platelet Volume 6.3 fL (7.4-10.4); Platelet Count 293 thou/uL (130-400); Red Blood Cell (RBC) Count 4.15 mill/uL (4.70-6.10); White Blood Cell (WBC) Count 6.4 thou/uL (4.8-10.8)
[2018-04-06 06:35] LABS: ALT (SGPT) 6 U/L (8-55); AST (SGOT) 25 U/L (5-34); Albumin 3.1 g/dL (3.4-4.8); Alkaline Phosphatase 66 U/L (40-150); Anion Gap 10 mmol/L (10-20); BUN (Urea Nitrogen) 19 mg/dL (8.4-25.7); Bilirubin, Total 0.4 mg/dL (0.2-1.2); Calc. Creatinine Clearance 63 mL/min (70-130); Calcium 8.3 mg/dL (7.8-10.44); Carbon Dioxide 22 mmol/L (23-31); Chloride 108 mmol/L (98-107); Estimated GFR-MDRD 53; Globulin 2.6 g/dL (2.4-3.5); Glucose 91 mg/dL (83-110); Potassium 4.1 mmol/L (3.5-5.1); Protein, Total 5.7 g/dL (5.8-8.1); Sodium 136 mmol/L (136-145)
[2018-04-06] MEDS: Polyethylene Glycol 3350 17 GM Packet PO SCH (08:18)
[2018-04-06] MEDS: TROSPIUM 20 MG TABLET PO SCH ×2 (08:18→20:06)
[2018-04-06] MEDS: Glimepiride 2 MG TAB PO SCH ×3 (08:18→17:50)
[2018-04-06] MEDS: NIFEdipine XL 30 MG TAB PO SCH (08:19)
[2018-04-06] MEDS: Nystatin Powder 15 GM BOT TOP SCH ×2 (08:19→20:09)
[2018-04-06] MEDS: Senokot S 8.6-50 MG TAB PO SCH ×2 (08:19→20:07)
[2018-04-06] MEDS: Carbidopa/Levodopa 25-250 mg Tablet PO SCH ×3 (08:19→20:07)
[2018-04-06] MEDS: Saccharomyces boulardii 250 MG CAP PO SCH (08:21)
--- NOTE | 2018-04-06 14:08 | PRG ---
DATE OF SERVICE: 04/06/[address] Lee Smith. SUBJECTIVE: The patient feels well, sitting up in the bed, has been cooperating with therapy with no complaints, feels like he is getting stronger. He is having no further perineal tenderness. OBJECTIVE: VITAL SIGNS: Blood pressure is 133/63, O2 sats 93%, respirations 20, pulse 75, afebrile. LUNGS: Clear. CARDIAC: Shows regular rhythm. ABDOMEN: Soft, nontender. LABORATORY DATA: White count 6400, hematocrit 36, hemoglobin 11. Sodium 136, potassium 4.1, chlorid e 108, bicarbonate 22, BUN 19, creatinine 1.29, albumin 3.1. Accu-Cheks range 83-159. ASSESSMENT: 1. Improving deconditioning. 2. Stable type 2 diabetes. 3. Resolved tendonitis available. 4. Stage I perineal irritation, improving. 5. Parkinson disease, stable. 6. Hypertension, stable. PLAN: 1. Continue PT, OT. 2. Continue perineal care. 3. Continue Accu-Cheks to monitor and titrate and control diabetes.
[2018-04-06] MEDS: RANITIDINE 150 MG PO SCH (17:50)
[2018-04-06] MEDS: Finasteride 5 MG TAB PO SCH (20:07)
[2018-04-06] MEDS: Pravastatin Sodium 20 MG TAB PO SCH (20:07)
[2018-04-06] MEDS: Tamsulosin HCl 0.4 MG CAP PO SCH (20:07)
--- NOTE | 2018-04-07 07:58 | PRG ---
DATE OF SERVICE: 04/07/2018 DATE OF ADMISSION: 03/22/2018 HISTORY OF PRESENT ILLNESS: Mr. Severino is a very pleasant 82-year-old white male, admitted to [facility] with gross hematuria and lower abdominal pain. He had a catheter-associated urinary tract infection as well as cellulitis of the perineal area and acute on chronic kidney disease. He w as admitted to [facility] and treated with IV antibiotics and grew out Pseudomonas and Klebs iella. Eventually, he was stabilized and transferred to [facility] for swing bed to continue his antibiotics and for PT and OT. SUBJECTIVE: The patient states he is doing well and has no complaints today. He states he is eating well. He is comfortable and is working hard with therapy. PHYSICAL EXAMINATION: VITAL SIGNS: Today, reveal blood pressure 138/68, pulse 75, respirations 18, O2 sat 95% on room air, T-max 98.2. GENERAL: This is a well-developed, well-nourished, slightly obese white male, in no apparent distres s at this time. HEENT: Reveals normocephalic, nontraumatic cranium. Pupils equally round and reactive. Extraocular movements intact. Nose and throat are slightly dry. NECK: Supple, without mass, nodes, or bruits. LUNGS: Chest is clear to auscultation. No rales, no rhonchi, no wheezes are heard. CARDIOVASCULAR: Reveals a regular rate and rhythm without murmurs, gallops, or rubs. ABDOMEN: Soft, obese, nontender, without organomegaly, normal bowel sounds are noted. No rebound or guarding is noted. GENITOURINARY EXAM: Deferred. EXTREMITIES: Reveal no clubbing, cyanosis, or edema. Bacterial culture on the buttock's drainage was noted to grow out Pseudomonas and sensitivities are i n progress. LABORATORY DATA: Laboratory reveals white count 6400, hemoglobin 11.6, hematocrit 36.0, platelet cou nt 293,000. Chemistry reveals sodium 136, potassium 4.1, chloride 108, carbon dioxide 22 with a BUN of 19, creatinine 1.29. Point of care sugars reveal yesterday morning sugar was 83, before lunch 115 , before supper 111, before bedtime 147. IMPRESSION: 1. Generalized weakness, improved. 2. Stable type 2 diabetes. 3. Tendinitis, resolved. 4. Stage 1 perineal irritation, improving. 5. Parkinson's disease, stable. 6. Hypertension, stable. PLAN: 1. Continue PT and OT. 2. Continue perineal care. 3. Await culture and sensitivities of the patient's buttocks lesion with drainage. 4. Continue Accu-Cheks a.c. and at bedtime. 5. Stress ulcer prophylaxis. 6. Decubitus precautions. 7. DVT prophylaxis.
[2018-04-07] MEDS: TROSPIUM 20 MG TABLET PO SCH ×2 (08:20→20:07)
[2018-04-07] MEDS: Senokot S 8.6-50 MG TAB PO SCH ×2 (08:20→20:06)
[2018-04-07] MEDS: NIFEdipine XL 30 MG TAB PO SCH (08:20)
[2018-04-07] MEDS: Carbidopa/Levodopa 25-250 mg Tablet PO SCH ×3 (08:20→20:07)
[2018-04-07] MEDS: Nystatin Powder 15 GM BOT TOP SCH ×2 (08:20→20:08)
[2018-04-07] MEDS: Glimepiride 2 MG TAB PO SCH ×3 (08:20→17:28)
[2018-04-07] MEDS: Saccharomyces boulardii 250 MG CAP PO SCH (08:20)
[2018-04-07] MEDS: Polyethylene Glycol 3350 17 GM Packet PO SCH (08:21)
[2018-04-07] MEDS ORDERED: RENALLY ADJUST CEFEPIME IVPB PRN (12:42)
[2018-04-07] MEDS: Cefepime 2 GM in Sodium Chloride 0.9% 100 ML IVPB SCH (13:08)
[2018-04-07] MEDS: RANITIDINE 150 MG PO SCH (17:29)
[2018-04-07] MEDS: Finasteride 5 MG TAB PO SCH (20:07)
[2018-04-07] MEDS: Tamsulosin HCl 0.4 MG CAP PO SCH (20:07)
[2018-04-07] MEDS: Pravastatin Sodium 20 MG TAB PO SCH (20:07)
[2018-04-08] MEDS: Cefepime 2 GM in Sodium Chloride 0.9% 100 ML IVPB SCH ×2 (01:24→12:43)
--- NOTE | 2018-04-08 07:22 | PRG ---
DATE OF SERVICE: 04/08/2018 DATE OF ADMISSION: 03/22/2018 HISTORY OF PRESENT ILLNESS: Mr. Severino is a very pleasant 82-year-old white male, initially seen a [facility] with lower abdominal pain and gross hematuria. He was found to have a catheter -associated UTI and cellulitis of the perineal area. He also had significant acute on chronic renal insufficiency. He was treated with IV antibiotics, which grew out Pseudomonas and Klebsiella. He wa s eventually transferred to [facility] for swing bed, continue his antibiotics and hi s PT and OT. Yesterday, the patient developed some diarrhea and we have given him some Imodium. The patient's perineal oozing came back with Pseudomonas, not sensitive to Cipro, so the patient's Ci pro was stopped. He was started on cefepime 2 grams IV q.12 hours. OBJECTIVE: VITAL SIGNS: Today, reveal blood pressure 122/59, pulse 68-83, respirations 18-20, O2 sat 95%-97% on room air, T-max 97.7. GENERAL: This is a well-developed, well-nourished, slightly obese white male, in no apparent distres s at this time. HEENT: Reveals normocephalic, nontraumatic cranium. The pupils are equally round and reactive. Ext raocular movements intact. Nose and throat are clear, but dry. NECK: Supple, without mass, nodes, or bruits. LUNGS: Chest is clear to auscultation. No rales, rhonchi, wheezes, or cough is heard. HEART: Reveals a regular rate and rhythm without murmurs, gallops, or rubs. ABDOMEN: Obese. It is soft, nontender, without organomegaly. Normal bowel sounds are noted in all 4 quadrants. No rebound or guarding is noted. No hyperactive bowel sounds are noted. The patient s tates his diarrhea is resolved. EXAM: Deferred. EXTREMITIES: Reveal no clubbing, cyanosis, or edema. Fletcher catheter reveals his urine is absolutely completely clear. ASSESSMENT: 1. Generalized weakness. 2. Stable type 2 diabetes. 3. Tendinitis, resolved. 4. Perineal irritation and cellulitis, presently on cefepime 2 grams IV q.12 hours. 5. Parkinson disease, stable. 6. Hypertension, stable. PLAN: 1. Continue perineal care. 2. Discontinue the patient's Cipro for his buttocks' lesions. 3. Start cefepime 2 grams IV q.12 hours. 4. Continue Accu-Cheks a.c. and at bedtime. 5. Continue stress ulcer prophylaxis. 6. Decubitus precautions. 7. Deep venous thrombosis prophylaxis.
[2018-04-08] MEDS: NIFEdipine XL 30 MG TAB PO SCH (08:40)
[2018-04-08] MEDS: Carbidopa/Levodopa 25-250 mg Tablet PO SCH ×3 (08:40→20:37)
[2018-04-08] MEDS: TROSPIUM 20 MG TABLET PO SCH ×2 (08:40→20:37)
[2018-04-08] MEDS: Glimepiride 2 MG TAB PO SCH ×3 (08:40→17:02)
[2018-04-08] MEDS: Nystatin Powder 15 GM BOT TOP SCH ×2 (08:41→20:38)
[2018-04-08] MEDS: Senokot S 8.6-50 MG TAB PO SCH ×2 (08:42→20:39)
[2018-04-08] MEDS: Polyethylene Glycol 3350 17 GM Packet PO SCH (08:42)
[2018-04-08] MEDS: Saccharomyces boulardii 250 MG CAP PO SCH (08:42)
[2018-04-08] MEDS: RANITIDINE 150 MG PO SCH (17:02)
[2018-04-08] MEDS: Finasteride 5 MG TAB PO SCH (20:37)
[2018-04-08] MEDS: Tamsulosin HCl 0.4 MG CAP PO SCH (20:37)
[2018-04-08] MEDS: Pravastatin Sodium 20 MG TAB PO SCH (20:37)
[2018-04-09] MEDS: Cefepime 2 GM in Sodium Chloride 0.9% 100 ML IVPB SCH ×2 (01:20→12:03)
[2018-04-09] MEDS: Glimepiride 2 MG TAB PO SCH ×3 (08:39→17:00)
[2018-04-09] MEDS: Carbidopa/Levodopa 25-250 mg Tablet PO SCH ×3 (08:39→21:12)
[2018-04-09] MEDS: NIFEdipine XL 30 MG TAB PO SCH (08:39)
[2018-04-09] MEDS: Nystatin Powder 15 GM BOT TOP SCH ×2 (08:40→21:12)
[2018-04-09] MEDS: Polyethylene Glycol 3350 17 GM Packet PO SCH (08:40)
[2018-04-09] MEDS: Saccharomyces boulardii 250 MG CAP PO SCH (08:40)
[2018-04-09] MEDS: Senokot S 8.6-50 MG TAB PO SCH ×2 (08:41→21:11)
[2018-04-09] MEDS: TROSPIUM 20 MG TABLET PO SCH ×2 (08:41→21:12)
--- NOTE | 2018-04-09 13:51 | PRG ---
DATE OF SERVICE: 04/09/2018 SUBJECTIVE: Mr. Severino is doing well. His right elbow is pretty much back to normal. He is loyda ating therapy and apparently walked about 40 feet. His spouse is in the room. He is on Maxipime IV due to Pseudomonas growing from his buttock decubitus. No fever or chills. No other concerns or que stions. OBJECTIVE: VITAL SIGNS: He is afebrile, heart rate 70, respirations 20, oxygen saturation 94% on room air, bloo d pressure 123/61. CARDIOVASCULAR: S1, S2 plus. RESPIRATORY SYSTEM: Normal vesicular breath sounds. ABDOMEN: Soft, nontender, bowel sounds heard in all quadrants, obese. EXTREMITIES: Without cyanosis or clubbing. CENTRAL NERVOUS SYSTEM: Improving deconditioning. LABORATORY VALUES: Blood sugars are 106, 107, 115, 143, 83 and 116. IMPRESSION: 1. Pseudomonas in his buttock decubitus/excoriation. He is on cefepime. We will switch him to oral antibiotic in the next day or two. 2. Diabetes mellitus type 2, well controlled. 3. Parkinson's disease. 4. Hypertension. 5. Dyslipidemia. 6. Deconditioning. 7. Resolved right elbow tendinitis. PLAN: 1. Continue current medications. 2. Nutritional support. 3. DVT and stress ulcer prophylaxis. 4. Decubitus precautions. 5. Accu-Cheks with sliding scale coverage. 6. 1800 calorie heart healthy ADA diet. 7. Continue physical therapy. 8. Local care for wound. 9. I discussed with the patient and spouse in detail. All questions answered.
[2018-04-09] MEDS: RANITIDINE 150 MG PO SCH (17:01)
[2018-04-09] MEDS: Tamsulosin HCl 0.4 MG CAP PO SCH (21:12)
[2018-04-09] MEDS: Finasteride 5 MG TAB PO SCH (21:12)
[2018-04-09] MEDS: Pravastatin Sodium 20 MG TAB PO SCH (21:12)
[2018-04-10] MEDS: Cefepime 2 GM in Sodium Chloride 0.9% 100 ML IVPB SCH ×2 (01:32→13:47)
[2018-04-10] MEDS: NIFEdipine XL 30 MG TAB PO SCH (08:32)
[2018-04-10] MEDS: Carbidopa/Levodopa 25-250 mg Tablet PO SCH ×3 (08:32→20:09)
[2018-04-10] MEDS: Glimepiride 2 MG TAB PO SCH ×3 (08:32→16:37)
[2018-04-10] MEDS: Polyethylene Glycol 3350 17 GM Packet PO SCH (08:33)
[2018-04-10] MEDS: Saccharomyces boulardii 250 MG CAP PO SCH (08:33)
[2018-04-10] MEDS: Senokot S 8.6-50 MG TAB PO SCH ×2 (08:33→20:09)
[2018-04-10] MEDS: TROSPIUM 20 MG TABLET PO SCH ×2 (08:33→20:09)
[2018-04-10] MEDS: Nystatin Powder 15 GM BOT TOP SCH ×2 (08:33→20:10)
--- NOTE | 2018-04-10 13:26 | PRG ---
DATE OF SERVICE: 04/10/2018 SUBJECTIVE: Mr. Severino is doing well. Denies any complaints, resting comfortably, tolerating his antibiotics. Denies any fever or chills. Family is up in the weekly conference. OBJECTIVE: VITAL SIGNS: He is afebrile, heart rate is 77, respirations 18, oxygen saturation 93% on room air, b lood pressure 151/68. CARDIOVASCULAR: S1, S2 plus. RESPIRATORY SYSTEM: Normal vesicular breath sounds. ABDOMEN: Soft, obese, nontender. Bowel sounds heard in all quadrants. EXTREMITIES: Without cyanosis or clubbing. CENTRAL NERVOUS SYSTEM: Improving deconditioning. LABORATORY VALUES: Blood sugars are 116, 95, 136, 94 and 128. IMPRESSION: 1. Resolved urinary tract infection and cellulitis. 2. Abrasion of the buttock with Pseudomonas, on IV antibiotics. We will switch him to oral antibiot ics from tomorrow. 3. Diabetes mellitus type 2, well controlled. 4. Hypertension. 5. Dyslipidemia. 6. Parkinson's disease. 7. Deconditioning. PLAN: 1. Continue current medications. 2. Nutritional support. 3. 1800 calorie heart healthy ADA diet. 4. Accu-Cheks with sliding scale coverage. 5. Wound care. 6. DVT and stress ulcer prophylaxis. 7. Decubitus precautions. 8. Continue therapy. 9. Discussed with patient and nursing in detail and all questions answered.
[2018-04-10] MEDS: RANITIDINE 150 MG PO SCH (16:37)
[2018-04-10] MEDS: Tamsulosin HCl 0.4 MG CAP PO SCH (20:09)
[2018-04-10] MEDS: Pravastatin Sodium 20 MG TAB PO SCH (20:09)
[2018-04-10] MEDS: Finasteride 5 MG TAB PO SCH (20:09)
[2018-04-11] MEDS: Cefepime 2 GM in Sodium Chloride 0.9% 100 ML IVPB SCH ×2 (01:45→13:12)
[2018-04-11] MEDS: Saccharomyces boulardii 250 MG CAP PO SCH (08:53)
[2018-04-11] MEDS: Glimepiride 2 MG TAB PO SCH ×3 (08:53→17:57)
[2018-04-11] MEDS: Senokot S 8.6-50 MG TAB PO SCH ×2 (08:53→20:05)
[2018-04-11] MEDS: Carbidopa/Levodopa 25-250 mg Tablet PO SCH ×3 (08:53→20:04)
[2018-04-11] MEDS: TROSPIUM 20 MG TABLET PO SCH ×2 (08:53→20:04)
[2018-04-11] MEDS: NIFEdipine XL 30 MG TAB PO SCH (08:53)
[2018-04-11] MEDS: Nystatin Powder 15 GM BOT TOP SCH ×2 (08:54→20:05)
[2018-04-11] MEDS: Polyethylene Glycol 3350 17 GM Packet PO SCH (08:54)
--- NOTE | 2018-04-11 13:57 | PRG ---
DATE OF SERVICE: 04/11/2018 SUBJECTIVE: Mr. Severino is doing the same. Denies any complaints. Resting comfortably, tolerating his therapy. Discussed with nursing and he still needs at least 1 person to help him get him out of the bed, sometimes more than one. No family at bedside. OBJECTIVE: VITAL SIGNS: He is afebrile, heart rate 72, respirations 20, oxygen saturation 96% on room air, bloo d pressure 144/68. CARDIOVASCULAR: S1, S2 plus. RESPIRATORY SYSTEM: Normal vesicular breath sounds. ABDOMEN: Soft, nontender, bowel sounds heard in all quadrants, obese. EXTREMITIES: Without cyanosis or clubbing. Trace edema. Peripheral pulses are palpable. CENTRAL NERVOUS SYSTEM: Improving deconditioning, but slow. LABORATORY VALUES: Blood sugars are 137, 128, 77, and 115. IMPRESSION: 1. Diabetes mellitus type 2. 2. Hypertension. 3. Dyslipidemia. 4. Parkinson's disease. 5. Pseudomonas in his buttock wound. 6. Deconditioning. PLAN: 1. Continue current medications. 2. Nutritional support. 3. Fletcher catheter care. 4. Accu-Cheks with sliding scale coverage. 5. Continue IV cefepime. 6. Continue physical therapy. 7. Case management for discharge planning. 8. Discussed with the patient and nursing in detail. All questions answered.
[2018-04-11] MEDS: RANITIDINE 150 MG PO SCH (17:57)
[2018-04-11] MEDS: Pravastatin Sodium 20 MG TAB PO SCH (20:04)
[2018-04-11] MEDS: Finasteride 5 MG TAB PO SCH (20:04)
[2018-04-11] MEDS: Tamsulosin HCl 0.4 MG CAP PO SCH (20:04)
[2018-04-12] MEDS: Cefepime 2 GM in Sodium Chloride 0.9% 100 ML IVPB SCH ×2 (01:29→12:44)
[2018-04-12] MEDS: NIFEdipine XL 30 MG TAB PO SCH (08:14)
[2018-04-12] MEDS: Saccharomyces boulardii 250 MG CAP PO SCH (08:14)
[2018-04-12] MEDS: Nystatin Powder 15 GM BOT TOP SCH ×2 (08:14→20:59)
[2018-04-12] MEDS: Carbidopa/Levodopa 25-250 mg Tablet PO SCH ×3 (08:15→21:00)
[2018-04-12] MEDS: TROSPIUM 20 MG TABLET PO SCH ×2 (08:15→20:59)
[2018-04-12] MEDS: Glimepiride 2 MG TAB PO SCH ×3 (08:15→18:21)
[2018-04-12] MEDS: Senokot S 8.6-50 MG TAB PO SCH ×2 (08:15→21:00)
[2018-04-12] MEDS: Polyethylene Glycol 3350 17 GM Packet PO SCH (08:16)
--- NOTE | 2018-04-12 13:16 | PRG ---
DATE OF SERVICE: 04/12/2018 SUBJECTIVE: Mr. Severino is doing the same. Denies any complaints. His spouse is in the room. The y are planning on taking him home on a 6-hour pass as there is a family reunion. Apparently jami kearney to her discussion with Therapy, they are planning on taking him home next week. No other concerns or questions. OBJECTIVE: VITAL SIGNS: He is afebrile, heart rate is 66, respirations 20, oxygen saturation 99% on room air, b lood pressure 106/52. CARDIOVASCULAR: S1, S2 plus. RESPIRATORY SYSTEM: Normal vesicular breath sounds. ABDOMEN: Soft, nontender, bowel sounds heard in all quadrants. EXTREMITIES: Without cyanosis or clubbing. Peripheral pulses are palpable. CENTRAL NERVOUS SYSTEM: Slowly improving deconditioning. . IMPRESSION: 1. Diabetes mellitus type 2, well controlled. 2. Parkinson's disease. 3. Hypertension. 4. Dyslipidemia. 5. Benign prostatic hypertrophy. 6. Urinary retention requiring Fletcher catheter placement. PLAN: 1. Continue current medications. 2. Stop cefepime and switch him to oral antibiotics. 3. 1800-calorie heart healthy ADA diet. 4. Accu-Cheks with sliding scale coverage. 5. Decubitus care. 6. DVT and stress ulcer prophylaxis. 7. Decubitus precautions. 8. Routine laboratory values. 9. Continue physical therapy. 10. Discussed with patient and in detail. All questions answered.
[2018-04-12] MEDS: RANITIDINE 150 MG PO SCH (15:42)
[2018-04-12] MEDS: Pravastatin Sodium 20 MG TAB PO SCH (20:59)
[2018-04-12] MEDS: Finasteride 5 MG TAB PO SCH (21:00)
[2018-04-12] MEDS: Tamsulosin HCl 0.4 MG CAP PO SCH (21:00)
[2018-04-13] MEDS: Cefepime 2 GM in Sodium Chloride 0.9% 100 ML IVPB SCH ×3 (00:57→23:47)
[2018-04-13] MEDS: Glimepiride 2 MG TAB PO SCH ×3 (08:00→16:58)
[2018-04-13] MEDS: Senokot S 8.6-50 MG TAB PO SCH ×2 (09:00→20:39)
[2018-04-13] MEDS: Saccharomyces boulardii 250 MG CAP PO SCH (09:00)
[2018-04-13] MEDS: NIFEdipine XL 30 MG TAB PO SCH (09:00)
[2018-04-13] MEDS: Polyethylene Glycol 3350 17 GM Packet PO SCH (09:00)
[2018-04-13] MEDS: Nystatin Powder 15 GM BOT TOP SCH ×2 (09:00→20:40)
[2018-04-13] MEDS: TROSPIUM 20 MG TABLET PO SCH ×2 (09:00→20:39)
[2018-04-13] MEDS: Carbidopa/Levodopa 25-250 mg Tablet PO SCH ×3 (09:00→20:39)
[2018-04-13] MEDS: RANITIDINE 150 MG PO SCH (16:59)
[2018-04-13] MEDS: Tamsulosin HCl 0.4 MG CAP PO SCH (20:39)
[2018-04-13] MEDS: Finasteride 5 MG TAB PO SCH (20:39)
[2018-04-13] MEDS: Pravastatin Sodium 20 MG TAB PO SCH (20:39)
[2018-04-14] MEDS: Glimepiride 2 MG TAB PO SCH ×3 (08:41→16:45)
[2018-04-14] MEDS: NIFEdipine XL 30 MG TAB PO SCH (08:41)
[2018-04-14] MEDS: TROSPIUM 20 MG TABLET PO SCH ×2 (08:42→20:38)
[2018-04-14] MEDS: Nystatin Powder 15 GM BOT TOP SCH ×2 (08:42→20:39)
[2018-04-14] MEDS: Saccharomyces boulardii 250 MG CAP PO SCH (08:42)
[2018-04-14] MEDS: Senokot S 8.6-50 MG TAB PO SCH ×2 (08:42→20:38)
[2018-04-14] MEDS: Polyethylene Glycol 3350 17 GM Packet PO SCH (08:42)
[2018-04-14] MEDS: Carbidopa/Levodopa 25-250 mg Tablet PO SCH ×3 (08:43→20:38)
[2018-04-14] MEDS: Cefepime 2 GM in Sodium Chloride 0.9% 100 ML IVPB SCH ×2 (11:18→23:50)
[2018-04-14] MEDS: RANITIDINE 150 MG PO SCH (16:45)
[2018-04-14] MEDS: Tamsulosin HCl 0.4 MG CAP PO SCH (20:38)
[2018-04-14] MEDS: Finasteride 5 MG TAB PO SCH (20:38)
[2018-04-14] MEDS: Pravastatin Sodium 20 MG TAB PO SCH (20:38)
[2018-04-15] MEDS: Bisacodyl 10 MG SUPP PR PRN (06:14)
[2018-04-15] MEDS: Carbidopa/Levodopa 25-250 mg Tablet PO SCH ×3 (08:42→20:20)
[2018-04-15] MEDS: Glimepiride 2 MG TAB PO SCH ×3 (08:42→16:54)
[2018-04-15] MEDS: NIFEdipine XL 30 MG TAB PO SCH (08:43)
[2018-04-15] MEDS: TROSPIUM 20 MG TABLET PO SCH ×2 (08:43→20:20)
[2018-04-15] MEDS: Polyethylene Glycol 3350 17 GM Packet PO SCH (08:43)
[2018-04-15] MEDS: Saccharomyces boulardii 250 MG CAP PO SCH (08:43)
[2018-04-15] MEDS: Senokot S 8.6-50 MG TAB PO SCH ×2 (08:43→20:20)
[2018-04-15] MEDS: Nystatin Powder 15 GM BOT TOP SCH ×2 (08:44→20:21)
[2018-04-15] MEDS: Cefepime 2 GM in Sodium Chloride 0.9% 100 ML IVPB SCH ×2 (11:39→23:51)
[2018-04-15] MEDS: RANITIDINE 150 MG PO SCH (16:55)
[2018-04-15] MEDS: Tamsulosin HCl 0.4 MG CAP PO SCH (20:20)
[2018-04-15] MEDS: Finasteride 5 MG TAB PO SCH (20:20)
[2018-04-15] MEDS: Pravastatin Sodium 20 MG TAB PO SCH (20:20)
[2018-04-16] MEDS: Saccharomyces boulardii 250 MG CAP PO SCH (08:22)
[2018-04-16] MEDS: Carbidopa/Levodopa 25-250 mg Tablet PO SCH ×3 (08:22→20:20)
[2018-04-16] MEDS: Polyethylene Glycol 3350 17 GM Packet PO SCH (08:22)
[2018-04-16] MEDS: TROSPIUM 20 MG TABLET PO SCH ×2 (08:23→20:22)
[2018-04-16] MEDS: Senokot S 8.6-50 MG TAB PO SCH ×2 (08:23→20:21)
[2018-04-16] MEDS: Nystatin Powder 15 GM BOT TOP SCH ×2 (08:23→20:21)
[2018-04-16] MEDS: Glimepiride 2 MG TAB PO SCH ×3 (08:23→16:32)
[2018-04-16] MEDS: NIFEdipine XL 30 MG TAB PO SCH (08:23)
[2018-04-16] MEDS: Cefepime 2 GM in Sodium Chloride 0.9% 100 ML IVPB SCH ×2 (12:42→23:15)
--- NOTE | 2018-04-16 13:20 | PRG ---
DATE OF SERVICE: 04/16/2018 SUBJECTIVE: Mr. Severino is doing well. Denies any complaints, resting comfortably. Discussed with nursing. Apparently they checked with the urologist and he is due to have his catheter changed into 16-Danish. Nursing is going to change it today. He is also improving with therapy. He is to finis h his antibiotic probably this , that will be 10 days. Discussed with the director of deborah kearney and apparently the patient's daughter, Brenda informed him that all the paperwork for the [facility] ed has been done. They got the orders and documentation during his visit to his physician. I advise d him to confirm it since I received an order from Medicare equipment. He does qualify for a hospita l bed because of his Parkinson's disease and his deconditioning where he would benefit from positioni ng in ways that is not feasible with a regular bed. He does not need any leg elevation. The hospita l would also help him get in and out of the bed easier if it can be raised and lowered. He has impro megan from the physical standpoint, but he still needs significant assistance. He does not have heart failure. He does not need any leg elevation for heart failure. OBJECTIVE: VITAL SIGNS: He is afebrile, heart rate 75, respirations 18, oxygen saturation 94% on room air, bloo d pressure 120/60. CARDIOVASCULAR: S1, S2 plus. RESPIRATORY: Normal vesicular breath sounds. ABDOMEN: Soft, nontender. Bowel sounds heard in all quadrants. EXTREMITIES: Without cyanosis or clubbing. Peripheral pulses are palpable. CENTRAL NERVOUS SYSTEM: Improving deconditioning. Fletcher catheter in place. LABORATORY VALUES: Blood sugars are 136, 140, 83 and 123. IMPRESSION: 1. Parkinson's disease. 2. Resolved urinary tract infection and cellulitis. 3. Improving buttock wound with Pseudomonas. 4. Diabetes mellitus, well controlled. 5. Hypertension. 6. Dyslipidemia. 7. Improving deconditioning. PLAN: 1. Continue Maxipime for a total of 10 days. 2. Nursing to check with family about the paperwork for his hospital bed and if they do not have it, they will contact me. This note can be used as the [id number] and then I will sign the orders for Medicare equipment. 3. Recheck CBC and BMP in the morning. 4. Change Fletcher. 5. An 1800 calorie heart healthy ADA diet. 6. DVT and stress ulcer prophylaxis. 7. Decubitus precautions. 8. Routine laboratory values.
[2018-04-16] MEDS: RANITIDINE 150 MG PO SCH (16:32)
[2018-04-16] MEDS: Finasteride 5 MG TAB PO SCH (20:20)
[2018-04-16] MEDS: Pravastatin Sodium 20 MG TAB PO SCH (20:21)
[2018-04-16] MEDS: Tamsulosin HCl 0.4 MG CAP PO SCH (20:22)
[2018-04-17 05:11] LABS: #Basophils 0.1 thou/uL (0.0-0.2); #Eosinphils 0.8 thou/uL (0.0-0.7); #Lymphocytes 1.5 thou/uL (1.20-3.40); #Monocytes 0.7 thou/uL (0.11-0.59); #Neutrophils 4.1 thou/uL (1.40-6.50); %Basophils 1.3 % (0.0-1.0); %Eosinophils 11.2 % (0.0-10.0); %Lymphocytes 20.8 % (21.0-51.0); %Monocytes 10.2 % (0.0-10.0); %Neutrophils 56.6 % (42.0-75.0); Hemoglobin 12.8 g/dL (14.0-18.0); Mean Corpuscular HGB CONC 32.2 g/dL (32.0-36.0); Mean Corpuscular Hemoglobin 28.3 pg (27.0-31.0); Mean Corpuscular Volume 87.9 fL (78.0-98.0); Mean Platelet Volume 7.1 fL (7.4-10.4); Platelet Count 218 thou/uL (130-400); RBC Distribution Width 13.7 % (11.5-14.5); Red Blood Cell (RBC) Count 4.51 mill/uL (4.70-6.10); White Blood Cell (WBC) Count 7.3 thou/uL (4.8-10.8)
[2018-04-17 05:28] LABS: Anion Gap 11 mmol/L (10-20); BUN (Urea Nitrogen) 18 mg/dL (8.4-25.7); Calc. Creatinine Clearance 62 mL/min (70-130); Carbon Dioxide 24 mmol/L (23-31); Chloride 107 mmol/L (98-107); Estimated GFR-MDRD 52; Glucose 99 mg/dL (83-110); Potassium 4.1 mmol/L (3.5-5.1); Sodium 138 mmol/L (136-145)
[2018-04-17] MEDS: Glimepiride 2 MG TAB PO SCH ×3 (08:23→17:01)
[2018-04-17] MEDS: NIFEdipine XL 30 MG TAB PO SCH (08:23)
[2018-04-17] MEDS: Saccharomyces boulardii 250 MG CAP PO SCH (08:23)
[2018-04-17] MEDS: TROSPIUM 20 MG TABLET PO SCH ×2 (08:23→20:08)
[2018-04-17] MEDS: Polyethylene Glycol 3350 17 GM Packet PO SCH (08:23)
[2018-04-17] MEDS: Carbidopa/Levodopa 25-250 mg Tablet PO SCH ×3 (08:23→20:07)
[2018-04-17] MEDS: Senokot S 8.6-50 MG TAB PO SCH ×2 (08:23→20:07)
[2018-04-17] MEDS: Nystatin Powder 15 GM BOT TOP SCH ×2 (08:28→20:07)
[2018-04-17] MEDS: Cefepime 2 GM in Sodium Chloride 0.9% 100 ML IVPB SCH ×2 (11:47→23:15)
[2018-04-17] MEDS: RANITIDINE 150 MG PO SCH (17:01)
[2018-04-17] MEDS: Pravastatin Sodium 20 MG TAB PO SCH (20:07)
[2018-04-17] MEDS: Finasteride 5 MG TAB PO SCH (20:07)
[2018-04-17] MEDS: Tamsulosin HCl 0.4 MG CAP PO SCH (20:08)
[2018-04-18] MEDS: Glimepiride 2 MG TAB PO SCH ×3 (08:50→16:42)
[2018-04-18] MEDS: NIFEdipine XL 30 MG TAB PO SCH (08:50)
[2018-04-18] MEDS: Carbidopa/Levodopa 25-250 mg Tablet PO SCH ×3 (08:50→20:40)
[2018-04-18] MEDS: Nystatin Powder 15 GM BOT TOP SCH ×2 (08:51→20:40)
[2018-04-18] MEDS: Saccharomyces boulardii 250 MG CAP PO SCH (08:51)
[2018-04-18] MEDS: Polyethylene Glycol 3350 17 GM Packet PO SCH (08:51)
[2018-04-18] MEDS: TROSPIUM 20 MG TABLET PO SCH ×2 (08:51→20:41)
[2018-04-18] MEDS: Senokot S 8.6-50 MG TAB PO SCH ×2 (08:51→20:40)
[2018-04-18] MEDS: Cefepime 2 GM in Sodium Chloride 0.9% 100 ML IVPB SCH (13:07)
[2018-04-18] MEDS: RANITIDINE 150 MG PO SCH (16:42)
[2018-04-18] MEDS: Finasteride 5 MG TAB PO SCH (20:40)
[2018-04-18] MEDS: Pravastatin Sodium 20 MG TAB PO SCH (20:40)
[2018-04-18] MEDS: Tamsulosin HCl 0.4 MG CAP PO SCH (20:41)
[2018-04-19] MEDS: Glimepiride 2 MG TAB PO SCH ×3 (08:55→17:23)
[2018-04-19] MEDS: NIFEdipine XL 30 MG TAB PO SCH (08:55)
[2018-04-19] MEDS: Carbidopa/Levodopa 25-250 mg Tablet PO SCH ×3 (08:55→20:01)
[2018-04-19] MEDS: Senokot S 8.6-50 MG TAB PO SCH ×2 (08:56→20:01)
[2018-04-19] MEDS: Saccharomyces boulardii 250 MG CAP PO SCH (08:56)
[2018-04-19] MEDS: Nystatin Powder 15 GM BOT TOP SCH ×2 (08:56→20:04)
[2018-04-19] MEDS: Polyethylene Glycol 3350 17 GM Packet PO SCH (08:56)
[2018-04-19] MEDS: TROSPIUM 20 MG TABLET PO SCH ×2 (08:56→20:01)
--- NOTE | 2018-04-19 14:20 | PRG ---
DATE OF SERVICE: 04/19/2018 SUBJECTIVE: Mr. Severino is doing well. He denies any complaints, resting comfortably. He is done with his antibiotics. No fever or chills. No chest pain or shortness of breath. His superficial ab rasion in his buttock area is much improved. Arrangements are being made for him to be discharged ho la on Monday. ordered and apparently they will be delivered on Monday according to nursing. OBJECTIVE: VITAL SIGNS: He is afebrile, heart rate 74, respirations 18, oxygen saturation 93% on room air, bloo d pressure 132/61. CARDIOVASCULAR: S1, S2 plus. RESPIRATORY: Normal vesicular breath sounds. ABDOMEN: Soft, nontender, bowel sounds heard in all quadrants, obese. EXTREMITIES: Without cyanosis or clubbing. CENTRAL NERVOUS SYSTEM: Improving deconditioning. LABORATORY VALUES: White count of 7.3, H and H is 12.8 and 39.7. Blood sugars are 133, 100, 110, 11 0 and 128. Sodium 138, potassium 4.1. BUN and creatinine are 18 and 1.31. IMPRESSION: 1. Diabetes mellitus type 2, excellent control. 2. Hypertension. 3. Dyslipidemia. 4. Parkinson's disease. 5. Urinary retention requiring chronic Fletcher. 6. Resolved urinary tract infection and cellulitis. 7. Improving deconditioning. PLAN: 1. Continue 1800-calorie heart healthy ADA diet. 2. Accu-Cheks with sliding scale coverage. 3. Fletcher catheter care. 4. DVT and stress ulcer prophylaxis. 5. Decubitus precautions. 6. Physical therapy. 7. Discharge planning. 8. Discussed with the patient in detail. No family at bedside.
[2018-04-19] MEDS: RANITIDINE 150 MG PO SCH (17:23)
[2018-04-19] MEDS: Finasteride 5 MG TAB PO SCH (20:01)
[2018-04-19] MEDS: Tamsulosin HCl 0.4 MG CAP PO SCH (20:01)
[2018-04-19] MEDS: Pravastatin Sodium 20 MG TAB PO SCH (20:01)
[2018-04-20] MEDS: Glimepiride 2 MG TAB PO SCH ×3 (09:05→17:48)
[2018-04-20] MEDS: Carbidopa/Levodopa 25-250 mg Tablet PO SCH ×3 (09:09→20:08)
[2018-04-20] MEDS: NIFEdipine XL 30 MG TAB PO SCH ×2 (09:10→09:15)
[2018-04-20] MEDS: Nystatin Powder 15 GM BOT TOP SCH ×2 (09:13→20:11)
[2018-04-20] MEDS: Saccharomyces boulardii 250 MG CAP PO SCH (09:14)
[2018-04-20] MEDS: Polyethylene Glycol 3350 17 GM Packet PO SCH (09:15)
[2018-04-20] MEDS: Senokot S 8.6-50 MG TAB PO SCH ×2 (09:16→20:08)
[2018-04-20] MEDS: TROSPIUM 20 MG TABLET PO SCH ×2 (09:17→20:08)
[2018-04-20] MEDS: RANITIDINE 150 MG PO SCH (17:45)
[2018-04-20] MEDS: Tamsulosin HCl 0.4 MG CAP PO SCH (20:08)
[2018-04-20] MEDS: Finasteride 5 MG TAB PO SCH (20:08)
[2018-04-20] MEDS: Pravastatin Sodium 20 MG TAB PO SCH (20:08)
[2018-04-21] MEDS: Saccharomyces boulardii 250 MG CAP PO SCH (09:17)
[2018-04-21] MEDS: Senokot S 8.6-50 MG TAB PO SCH ×2 (09:18→20:33)
[2018-04-21] MEDS: Nystatin Powder 15 GM BOT TOP SCH ×2 (09:18→20:34)
[2018-04-21] MEDS: TROSPIUM 20 MG TABLET PO SCH ×2 (09:18→20:33)
[2018-04-21] MEDS: Carbidopa/Levodopa 25-250 mg Tablet PO SCH ×3 (09:18→20:34)
[2018-04-21] MEDS: Glimepiride 2 MG TAB PO SCH ×3 (09:18→17:31)
[2018-04-21] MEDS: Polyethylene Glycol 3350 17 GM Packet PO SCH (09:19)
--- NOTE | 2018-04-21 12:12 | PRG ---
DATE OF SERVICE: 04/21/[address] Lee Smith. SUBJECTIVE: The patient is a very pleasant 82-year-old white male with a history of recent urinary t ract infection, cellulitis and chronic Fletcher catheterization, who has finished antibiotics and now he is improving daily with increasing strength, but was requiring a durable medical equipment to be del ivered to his home on Monday and will be discharged on that day. He is having no complaints of short ness of breath, chest pain or weakness at this time. OBJECTIVE: VITAL SIGNS: Temperature 98, pulse 72, blood pressure 125/58, respirations 18, O2 sats 98% on room a ir, blood pressure is 122/65. LUNGS: Clear. CARDIAC: Shows regular rhythm. ABDOMEN: Soft and nontender. SKIN AND EXTREMITIES: Display no edema, clubbing, cyanosis. NEUROLOGICAL: Intact. ASSESSMENT: 1. Resolving deconditioning. 2. Stable Parkinson's disease. 3. Resolved urinary tract infection. 4. Stable diabetes, excellent control. 5. Hypertension, controlled to goal. PLAN: 1. Continue PT, OT. 2. Continue DVT and stress ulcer prophylaxis. 3. Continue Fletcher care. 4. Continue Accu-Cheks to monitor and titrate and control diabetes.
[2018-04-21] MEDS: RANITIDINE 150 MG PO SCH (17:31)
[2018-04-21] MEDS: Tamsulosin HCl 0.4 MG CAP PO SCH (20:33)
[2018-04-21] MEDS: Finasteride 5 MG TAB PO SCH (20:33)
[2018-04-21] MEDS: Pravastatin Sodium 20 MG TAB PO SCH (20:33)
[2018-04-22] MEDS: Nystatin Powder 15 GM BOT TOP SCH ×2 (08:19→20:15)
[2018-04-22] MEDS: Glimepiride 2 MG TAB PO SCH ×3 (08:19→17:06)
[2018-04-22] MEDS: NIFEdipine XL 30 MG TAB PO SCH (08:19)
[2018-04-22] MEDS: TROSPIUM 20 MG TABLET PO SCH ×2 (08:19→20:14)
[2018-04-22] MEDS: Saccharomyces boulardii 250 MG CAP PO SCH (08:19)
[2018-04-22] MEDS: Senokot S 8.6-50 MG TAB PO SCH ×2 (08:19→20:14)
[2018-04-22] MEDS: Carbidopa/Levodopa 25-250 mg Tablet PO SCH ×3 (08:19→20:14)
[2018-04-22] MEDS: Polyethylene Glycol 3350 17 GM Packet PO SCH (08:20)
--- NOTE | 2018-04-22 09:10 | PRG ---
DATE OF SERVICE: 04/22/2018 SUBJECTIVE: The patient is an 82-year-old white male patient of Dr. Smith with a long histor y of Parkinson's disease with a recent urinary tract infection, who finished antibiotics and improvin g daily and ready for discharge home when his hospital bed is available tomorrow. He has no complain ts today of shortness of breath, weakness, or chest pain. OBJECTIVE: Shows, VITAL SIGNS: Temperature is 96.7, pulse 83, respirations 20, O2 sats 95% on room air, blood pressure 132/61. LUNGS: Clear. CARDIAC EXAMINATION: Shows regular rhythm. NEUROLOGICAL: Shows mild resting tremor and cogwheel rigidity. ABDOMEN: Soft and nontender. ASSESSMENT: Resolved urinary tract infection, stable Parkinson's disease, stable type 2 diabetes, im proving deconditioning. PLAN: Stable to be discharged home today. Continue home medications.
[2018-04-22] MEDS: RANITIDINE 150 MG PO SCH (17:45)
[2018-04-22] MEDS: Pravastatin Sodium 20 MG TAB PO SCH (20:13)
[2018-04-22] MEDS: Finasteride 5 MG TAB PO SCH (20:14)
[2018-04-22] MEDS: Tamsulosin HCl 0.4 MG CAP PO SCH (20:14)
[2018-04-23 07:40] VITALS: BP 141/62; TEMP 98.2
[2018-04-23] MEDS: Glimepiride 2 MG TAB PO SCH ×3 (08:45→16:14)
[2018-04-23] MEDS: Polyethylene Glycol 3350 17 GM Packet PO SCH ×2 (08:46→08:49)
[2018-04-23] MEDS: NIFEdipine XL 30 MG TAB PO SCH (08:46)
[2018-04-23] MEDS: Saccharomyces boulardii 250 MG CAP PO SCH (08:46)
[2018-04-23] MEDS: Nystatin Powder 15 GM BOT TOP SCH (08:46)
[2018-04-23] MEDS: Carbidopa/Levodopa 25-250 mg Tablet PO SCH ×2 (08:46→15:05)
[2018-04-23] MEDS: TROSPIUM 20 MG TABLET PO SCH (08:47)
[2018-04-23] MEDS: Senokot S 8.6-50 MG TAB PO SCH (08:47)
--- NOTE | 2018-04-23 14:03 | DIS ---
PRINCIPAL DIAGNOSIS: 1. Resolved urinary tract infection with bacteremia. 2. Resolved cellulitis. 3. Resolved acute kidney injury. 4. Diabetes mellitus type 2, well controlled. 5. Hypertension. 6. Dyslipidemia. 7. Parkinson's disease. 8. Degenerative joint disease. 9. History of bladder cancer. 10. Benign prostatic hypertrophy and urinary retention requiring chronic indwelling Fletcher. 11. Gastroesophageal reflux disease. 12. Improving deconditioning. COMPLICATIONS: None. ADVERSE REACTIONS: None. PROCEDURES: None. CONSULTATIONS: Physical therapy and occupational therapy. HOSPITAL COURSE: The patient was admitted as a transfer from [facility] in [place] with a urinary tract infection with bacteremia, cellulitis and acute kidney injury which was resolving. He was continued on his antibiotics, both ciprofloxacin and doxycycline as well as physical therapy and occupational therapy evaluation and treatment. His blood sugars remained stable. He was kept off h is metformin since his creatinine was more than 1.4. His lisinopril was also held. His blood sugars remained under excellent control as did his blood pressure. He was able to participate with therapy , but had a very slow improvement. He also developed a superficial skin breakdown in his gluteal reg ion and cultures grew Pseudomonas. He was on IV Maxipime for 10 days. There were no oral antibiotic s that were sensitive. He finished that antibiotic regimen as well. He has been having periodic lab work to monitor his renal function and his blood counts and all have remained stable. He has reache d maximum medical improvement. Arrangements have been made for a hospital bed and any DME that he re quires and he was deemed stable for discharge to home today. I was told that the apparent plan is fo r him to eventually be placed in the nursing facility. He is supposed to follow up with his primary care physician, Dr. Kaufman. I discussed with the and she states that she does not need any pres criptions. PHYSICAL EXAMINATION: VITAL SIGNS: On the date of discharge, he is afebrile, heart rate is 74, respirations 20, oxygen sat uration 94% on room air, blood pressure 141/62. CARDIOVASCULAR: S1, S2 plus. RESPIRATORY SYSTEM: Normal vesicular breath sounds. ABDOMEN: Soft, obese, nontender. Bowel sounds heard in all quadrants. EXTREMITIES: Without cyanosis or clubbing. Peripheral pulses are palpable. CENTRAL NERVOUS SYSTEM: Parkinson's disease which is stable and improved deconditioning, but he stil l needs significant assistance. LABORATORY: Blood sugars are 132, 98, 134, 94 and 149. Last laboratory values were done on 04/17/20 18. Sodium 138, potassium 4.1, BUN and creatinine is 18 and 1.31. White count 7.3, H&H 12.8 and 39. 7. DISCHARGE MEDICATIONS: Tylenol 500 mg p.o. q.6. p.r.n., Dulcolax suppository b.i.d. p.r.n., Sinemet 25/250 one tablet t.i.d., finasteride 5 mg daily, Amaryl 0.5 mg p.o. t.i.d. With his blood sugars h e should even be able to just take it twice daily, Procardia-XL 30 mg p.o. daily, Nystatin powder b.i .d. p.r.n., Zantac 150 mg daily, MiraLax 17 grams in 8 ounce of water daily, Pravachol 40 mg daily, F lorastor 250 mg daily, which he should be able to stop, Senokot 1 tablet p.o. b.i.d., Flomax 0.4 mg p .o. daily, and trospium 20 mg p.o. b.i.d. FOLLOWUP: As stated he is to follow up with Dr. Kaufman, his PCP, in 3-5 days. DIET: He is to have an 1800 calorie, low salt diet. ACTIVITY: As tolerated with fall precautions. Fletcher catheter care. has been instructed to mick l me with any questions or concerns. Total time spent on this discharge 35 minutes.
[2018-04-23] MEDS: RANITIDINE 150 MG PO SCH (16:15)
== END 2018-04-23 17:45 | disposition home health service (06) | DRG 949 ==
LOC: NAV ACUTE 16:00
PROVIDERS: ADMIT Internal Medicine; ATTEND Internal Medicine
DX: T83.511D Infection and inflammatory reaction due to indwelling urethral catheter, subsequent encounter (principal); N39.0 Urinary tract infection, site not specified; L03.315 Cellulitis of perineum; R53.1 Weakness; N40.0 Benign prostatic hyperplasia without lower urinary tract symptoms; N18.3 Chronic kidney disease, stage 3 (moderate); E11.22 Type 2 diabetes mellitus with diabetic chronic kidney disease; I12.9 Hypertensive chronic kidney disease with stage 1 through stage 4 chronic kidney disease, or unspecified chronic kidney disease; E78.5 Hyperlipidemia, unspecified; G20 Parkinson's disease; M19.90 Unspecified osteoarthritis, unspecified site; Z85.51 Personal history of malignant neoplasm of bladder; K21.9 Gastro-esophageal reflux disease without esophagitis; B96.5 Pseudomonas (aeruginosa) (mallei) (pseudomallei) as the cause of diseases classified elsewhere; B96.1 Klebsiella pneumoniae [K. pneumoniae] as the cause of diseases classified elsewhere; R33.9 Retention of urine, unspecified; S30.810A Abrasion of lower back and pelvis, initial encounter; M77.9 Enthesopathy, unspecified; M17.0 Bilateral primary osteoarthritis of knee; K59.00 Constipation, unspecified
CPT/HCPCS: 36415; 36416; 80048; 80053; 85025; 87070; 87077; 87086; 87186; 87205; G8978-GP-CL; G8979-GP-CK; G8996-GN-CK; G8997-GN-CK; J0692; J7050

== ENCOUNTER 2018-09-05 17:14 | Inpatient (IN) | payer MEDICARE ==
[2018-09-05 17:25] VITALS: BMI 31.3
[2018-09-05] MEDS ORDERED: Finasteride 5 MG TAB PO SCH (22:30)
[2018-09-05] MEDS ORDERED: Carbidopa/Levodopa 25-250 mg Tablet PO SCH (22:30)
[2018-09-05] MEDS ORDERED: Enoxaparin Sodium 40 MG/0.4 ML SYRINGE SC SCH (22:30)
[2018-09-05] MEDS ORDERED: Atorvastatin Calcium 10 MG TAB PO SCH (22:45)
[2018-09-05] MEDS ORDERED: Tamsulosin HCl 0.4 MG CAP PO SCH (23:00)
[2018-09-05] MEDS: Famotidine 20 MG TAB PO SCH (23:16)
[2018-09-05 23:34] LABS: Bilirubin Negative (Negative); Blood, Urine Small (Negative); Clarity Clear (Clear); Glucose, Urine (Dipstick) Negative (Negative); Leukocyte Trace (Negative); Nitrite Negative (Negative); Protein, Urine (Dipstick) 100 mg/dL (Neg-Trace); Urobilinogen 0.2 mg/dL (0.2-1.0); pH, Urine 6.5 (5.0-9.0)
[2018-09-05 23:45] LABS: Bacteria/HPF Rare-Few HPF (None Seen); Squamous Epithelial 0-3 HPF (0-3); WBC/HPF 0-3 HPF (0-3)
[2018-09-06] MEDS ORDERED: Dextrose 5% in Water 1,000 ML IV PRN (00:05)
[2018-09-06] MEDS ORDERED: Dextrose 50% Abboject 50 ML SYRINGE IVP PRN (00:05)
[2018-09-06] MEDS ORDERED: HumaLOG 300 UNITS/3 ML VIAL SC PRN (00:05)
[2018-09-06 05:32] LABS: Band 5 % (5-11); Eosinophils 5 % (0-10); Hemoglobin 11.1 g/dL (14.0-18.0); Lymphocytes 21 % (21-51); MDiff Complete? YES; Mean Corpuscular HGB CONC 32.6 g/dL (32.0-36.0); Mean Corpuscular Hemoglobin 27.9 pg (27.0-31.0); Mean Corpuscular Volume 85.8 fL (78.0-98.0); Mean Platelet Volume 6.5 fL (7.4-10.4); Monocytes 6 % (0-10); Neutrophil 63 % (42-75); Platelet Count 284 thou/uL (130-400); Platelet Morphology Comment Appears Adequate; RBC Distribution Width 14.3 % (11.5-14.5); RBC Morphology Normal; Red Blood Cell (RBC) Count 3.96 mill/uL (4.70-6.10); White Blood Cell (WBC) Count 8.5 thou/uL (4.8-10.8)
[2018-09-06 05:45] LABS: ALT (SGPT) Less than 6 U/L (8-55); AST (SGOT) 13 U/L (5-34); Albumin 2.9 g/dL (3.4-4.8); Alkaline Phosphatase 85 U/L (40-150); Anion Gap 11 mmol/L (10-20); BUN (Urea Nitrogen) 20 mg/dL (8.4-25.7); Bilirubin, Total 0.5 mg/dL (0.2-1.2); Calc. Creatinine Clearance 49 mL/min (70-130); Calcium 8.7 mg/dL (7.8-10.44); Carbon Dioxide 24 mmol/L (23-31); Chloride 103 mmol/L (98-107); Estimated GFR-MDRD 38; Globulin 3.3 g/dL (2.4-3.5); Glucose 146 mg/dL (83-110); Potassium 4.4 mmol/L (3.5-5.1); Protein, Total 6.2 g/dL (5.8-8.1); Sodium 134 mmol/L (136-145)
[2018-09-06] MEDS: Levothyroxine Sodium 50 MCG TAB PO SCH (05:50)
[2018-09-06] MEDS: Glimepiride 2 MG TAB PO SCH ×3 (08:35→17:40)
[2018-09-06] MEDS: Famotidine 20 MG TAB PO SCH ×2 (08:38→21:19)
[2018-09-06] MEDS: Sulfameth/Trimethoprim DS 800-160mg TAB PO SCH ×2 (08:38→21:14)
[2018-09-06] MEDS: Senokot S 8.6-50 MG TAB PO SCH ×2 (08:38→21:14)
[2018-09-06] MEDS: Trospium 20 MG TAB PO SCH ×2 (08:38→21:18)
[2018-09-06] MEDS: NIFEdipine XL 30 MG TAB PO SCH (08:39)
[2018-09-06] MEDS: Carbidopa/Levodopa 25-250 mg Tablet PO SCH ×3 (08:40→21:14)
[2018-09-06] MEDS: Enoxaparin Sodium 40 MG/0.4 ML SYRINGE SC SCH (08:40)
[2018-09-06] MEDS: Clotrimazole 1% Cream 15 GM TUBE TOP SCH ×2 (08:41→21:19)
[2018-09-06] MEDS: Polyethylene Glycol 3350 17 GM Packet PO SCH (08:41)
[2018-09-06] MEDS ORDERED: Bisacodyl 10 MG SUPP PR PRN (09:00)
[2018-09-06] MEDS: HumaLOG 300 UNITS/3 ML VIAL SC PRN (12:24)
--- NOTE | 2018-09-06 19:55 | HP ---
PRINCIPAL DIAGNOSIS: Urinary tract infection and deconditioning for therapy. BRIEF HISTORY: This is a very pleasant 83-year-old male, who is known to me from his previous admission here, was admitted to [facility] for urosepsis. He was initially on IV antibiotics and was recommended switching to oral antibiotics for another total of 10 days. He was also felt to be significantly deconditioned and to be a candidate for inpatient rehabilitation, so transferred here. Currently, the patient is sitting upright in bed and finishing his lunch. His is in the room. He denies any concerns or questions. is hoping that he will improve faster than the last time he was here. PAST MEDICAL HISTORY: 1. Diabetes mellitus, type 2. 2. Hypertension. 3. Dyslipidemia. 4. Parkinson disease. 5. Degenerative joint disease. 6. History of bladder cancer. 7. BPH and urinary retention, requiring a chronic indwelling Fletcher. Plan is for him to be evaluated by Urology for possible suprapubic catheter. 8. Gastroesophageal reflux disease. PAST SURGICAL HISTORY: 1. Appendectomy. 2. Bladder cancer removal. 3. Tonsillectomy. 4. Adenoidectomy. 5. Hip surgery. 6. Cholecystectomy. 7. Soft tissue mass excision. ALLERGIES: TO LEVAQUIN. FAMILY HISTORY: Positive for hypertension, diabetes mellitus, and cerebrovascular accident. PSYCHOSOCIAL HISTORY: No history of tobacco or alcohol abuse. No recreational drug use. He lives at home with his . MEDICATIONS: He has been transferred here on the following medications. 1. Tylenol 650 mg p.o. q.6 p.r.n. 2. Lipitor 10 mg daily. 3. Dulcolax 10 mg b.i.d. p.r.n. 4. Sinemet 25/250 one tablet t.i.d. 5. Lotrimin cream b.i.d. to rash. 6. Lovenox 40 mg subcu daily. 7. Pepcid 20 mg daily. 8. Proscar 5 mg daily. 9. Amaryl 0.5 mg t.i.d. 10. Sliding scale coverage with insulin. 11. Levoxyl 50 mcg daily. 12. Toprol-XL 25 mg daily. 13. Procardia XL 30 mg daily. states that he is not on Procardia anymore, but they will bring the list of his current medication. 14. MiraLAX 17 g in 8-ounce of water daily. 15. Tamsulosin 0.4 mg at bedtime. 16. Bactrim DS one tablet b.i.d. for 10 more days. 17. Trospium 20 mg b.i.d. REVIEW OF SYSTEMS: CARDIOVASCULAR SYSTEM: Denies any chest pain, shortness of breath, palpitations, PND, orthopnea, or pedal edema. RESPIRATORY SYSTEM: Denies any chronic cough, expectoration, or pleuritic type chest pain. GASTROINTESTINAL SYSTEM: Denies any nausea, vomiting, diarrhea, constipation, hematemesis, melena, or hematochezia. GENITOURINARY SYSTEM: Urinary retention requiring Fletcher catheter. Denies any hematuria. Denies any dysuria. CENTRAL NERVOUS SYSTEM: Awake and responsive. Cranial nerves 2 through 12 grossly intact. Generalized weakness. HEENT: Denies any difficulty with speech, vision, hearing or swallowing. SKIN: Denies any rash. PHYSICAL EXAMINATION: GENERAL: A very pleasant 83-year-old male, in no apparent distress. He is up in his bed, eating lunch. He is awake and responsive. VITAL SIGNS: He is afebrile. Heart rate 65, respirations 20, oxygen saturation 95% on room air, blood pressure 124/60. HEENT: Normocephalic, atraumatic. Pupils equally reactive to light and accommodation. No JVD, thyromegaly, cervical lymphadenopathy, or throat exudates. No carotid bruits. CARDIOVASCULAR SYSTEM: S1 and S2 plus. Rate and rhythm regular. RESPIRATORY SYSTEM: Normal vesicular breath sounds heard in all lung villeda. ABDOMEN: Soft, obese, nontender. Bowel sounds in all quadrants. EXTREMITIES: Without cyanosis or clubbing. Trace edema. Peripheral pulses are palpable. Fletcher catheter present. CENTRAL NERVOUS SYSTEM: Awake and responsive. No obvious tremors. Does have some minimal rigidity, generalized weakness. LABORATORY DATA: Laboratory values done this morning shows a white count of 8.5, H and H are 11 and 34. Chemistry shows a sodium of 134, potassium 4.4, BUN and creatinine are 20 and 1.71. Blood sugars are 203, 135, and 199. His creatinine in the last time was 1.3 here in April. IMPRESSION: 1. Diabetes mellitus, type 2. 2. Hypertension. 3. Parkinson disease. 4. History of bladder cancer. 5. Benign prostatic hypertrophy and urinary retention. 6. Dyslipidemia. 7. Degenerative joint disease. 8. Gastroesophageal reflux disease. 9. Renal insufficiency. He does have history of chronic kidney disease, stage 3. PLAN: 1. Continue discharge medications from previous hospital. 2. 1800-calorie heart healthy ADA renal diet. 3. Accu-Cheks with sliding scale coverage. 4. Monitor blood pressure and adjust medications as needed. 5. DVT prophylaxis-he is on Lovenox. 6. Stress ulcer prophylaxis-he is on Pepcid. 7. Decubitus precautions. 8. Fletcher catheter care. 9. Consult PT/OT, eval and treat. 10. Routine laboratory values to monitor blood counts, renal function, and electrolytes. 11. Discussed with the patient and in detail. All questions answered. 12. Advised to bring his list of medicines from home, so we can make sure he is on the right ones. 13. Discussed with nursing. 14. Estimated length of stay, 10 to 14 days. Job ID: [id number]
[2018-09-06] MEDS: Finasteride 5 MG TAB PO SCH (21:14)
[2018-09-06] MEDS: Atorvastatin Calcium 10 MG TAB PO SCH (21:18)
[2018-09-06] MEDS: Tamsulosin HCl 0.4 MG CAP PO SCH (21:18)
[2018-09-07] MEDS: Levothyroxine Sodium 50 MCG TAB PO SCH (05:17)
[2018-09-07] MEDS: Enoxaparin Sodium 40 MG/0.4 ML SYRINGE SC SCH (08:49)
[2018-09-07] MEDS: Trospium 20 MG TAB PO SCH ×2 (08:50→21:09)
[2018-09-07] MEDS: Senokot S 8.6-50 MG TAB PO SCH ×2 (08:50→21:09)
[2018-09-07] MEDS: Glimepiride 2 MG TAB PO SCH ×3 (08:50→17:43)
[2018-09-07] MEDS: Clotrimazole 1% Cream 15 GM TUBE TOP SCH ×2 (08:50→21:10)
[2018-09-07] MEDS: Famotidine 20 MG TAB PO SCH (08:50)
[2018-09-07] MEDS: Carbidopa/Levodopa 25-250 mg Tablet PO SCH ×3 (08:50→21:10)
[2018-09-07] MEDS: Sulfameth/Trimethoprim DS 800-160mg TAB PO SCH ×2 (08:50→21:10)
[2018-09-07] MEDS: NIFEdipine XL 30 MG TAB PO SCH (08:50)
[2018-09-07] MEDS: Polyethylene Glycol 3350 17 GM Packet PO SCH (08:51)
[2018-09-07] MEDS: Acetaminophen 325 MG TAB PO PRN (11:39)
[2018-09-07] MEDS: HumaLOG 300 UNITS/3 ML VIAL SC PRN (11:50)
--- NOTE | 2018-09-07 14:02 | PRG ---
DATE OF SERVICE: 09/07/2018 SUBJECTIVE: Mr. Severino is a very pleasant 83-year-old white male. He was admitted to [facility] with urosepsis and started on IV antibiotics. He eventually was switched over to oral antibiotics and transferred to [facility] for physical therapy and occupational therapy for inpatient rehab. The patient was found this morning sitting in his potty chair, trying to have a bowel movement. He states unfortunately yesterday he had quite a bit of diarrhea during his therapy. Today, he has urge, but he has no results from his bowel movement yet. He states he is doing well and has no concerns, but he is glad he is here to get his physical therapy and occupational therapy. OBJECTIVE: VITAL SIGNS: Today reveal blood pressure this morning 118/58, pulse 62 to 72, respirations 20 to 22, O2 saturation 91 to 96% on room air, T-max 98.2. GENERAL: This is a well-developed, well-nourished, slightly obese white male, in no apparent distress at this time. HEENT: Normocephalic and nontraumatic cranium. The pupils are equally round and reactive. Extraocular movements are intact. Nose and throat are clear, but slightly dry. NECK: Supple without masses, nodes, or bruits. No jugular venous distention is noted. No bruits are noted. CHEST: Clear to auscultation. No rales, no rhonchi. No wheezes, and no cough is noted. HEART: Reveals a regular rate and rhythm without murmurs, gallops, or rubs. ABDOMEN: Obese, soft, nontender without organomegaly. Normal bowel sounds are positive in all 4 quadrants. No rebound or guarding is noted. : Deferred. EXTREMITIES: Reveal no clubbing, cyanosis, but trace edema. The patient does have good peripheral pulses. The patient does have a Fletcher catheter present. The patient is alert and oriented x3. ASSESSMENT: 1. Diabetes, type 2. 2. Hypertension. 3. Parkinson disease. 4. History of bladder cancer. 5. Benign prostatic hyperplasia and urinary retention. 6. Hyperlipidemia. 7. Gastroesophageal reflux disease. 8. Degenerative joint disease. 9. Renal insufficiency, stage 3. 10. Generalized weakness. PLAN: 1. Continue to monitor the patient's Accu-Cheks before meals and at bedtime. 2. Continue to monitor the patient's blood pressure and adjust medications as needed. 3. Continue with patient's Parkinson's medications. 4. Monitor the patient for renal indices for renal insufficiency. 5. Encourage the patient to eat a healthy heart diet. 6. Stress ulcer prophylaxis. 7. Decubitus precautions. 8. DVT prophylaxis. The patient is on Lovenox. 9. Fletcher catheter care. 10. Continue physical therapy and occupational therapy. Job ID: [id number]
[2018-09-07] MEDS: Atorvastatin Calcium 10 MG TAB PO SCH (21:09)
[2018-09-07] MEDS: Tamsulosin HCl 0.4 MG CAP PO SCH (21:09)
[2018-09-07] MEDS: Finasteride 5 MG TAB PO SCH (21:10)
[2018-09-08] MEDS: Levothyroxine Sodium 50 MCG TAB PO SCH (05:31)
--- NOTE | 2018-09-08 08:40 | PRG ---
DATE OF SERVICE: 09/08/2018 SUBJECTIVE: Mr. Severino is a very pleasant 83-year-old white male. He is awake and alert and ready for me to see him this morning. Unfortunately, he was admitted to [facility] with urosepsis and had to be started on IV antibiotics. Eventually, he was switched over to oral antibiotics and transferred to [facility] for PT and OT. The patient states he is doing well this morning and is waiting on me to be to see him early this morning about 6 o'clock. He states he did better yesterday with physical therapy and occupational therapy, and is still looking forward to getting stronger. He states he walked to the edge of the lewis and back. It has much improved. OBJECTIVE: VITAL SIGNS: Today reveal blood pressure 120/56, pulse 61 to 62, respirations 20, O2 saturation 96% on room air, and T-max 96.7. GENERAL: This is a well-developed, well-nourished, slightly obese white male, in no apparent distress at this time. He is awake and oriented and talking well. HEENT: Reveals normocephalic and nontraumatic cranium. The pupils are equally round and reactive. Extraocular movements are intact. Nose and throat are moist. NECK: Supple without masses, nodes, or bruits. CHEST: Clear to auscultation. No rales, rhonchi, wheezes, or cough noted. HEART: Reveals a regular rate and rhythm without murmurs, gallops, or rubs. No rales are heard. ABDOMEN: Obese, soft, nontender without organomegaly. Normal bowel sounds are noted. No rebound or guarding is noted. : Reveals Fletcher catheter in place with good clear urine output. EXTREMITIES: Reveal no clubbing or cyanosis with trace edema in his feet. The patient has good peripheral pulses. NEUROLOGIC: The patient is oriented x3. ASSESSMENT: 1. Diabetes type 2, stable. 2. Hypertension. 3. Parkinson disease. 4. History of bladder cancer. 5. BPH and urinary retention. 6. Hyperlipidemia. 7. Gastroesophageal reflux disease. 8. Degenerative joint disease. 9. Renal insufficiency, stage 3. 10. Generalized weakness. PLAN: 1. Continue to monitor the patient's Accu-Cheks before meals and at bedtime. 2. Continue to monitor the patient's blood pressure and adjust medications as needed. 3. Continue with the patient's present progress and medication. 4. Monitor the patient's renal indices for renal insufficiency. 5. Encourage the patient to eat a healthy heart diet. 6. Stress ulcer prophylaxis. 7. Decubitus precautions. 8. The patient is on Lovenox for DVT prophylaxis. 9. Fletcher catheter care. 10. Continue PT and OT. Job ID: [id number]
[2018-09-08] MEDS: Famotidine 20 MG TAB PO SCH (08:41)
[2018-09-08] MEDS: Glimepiride 2 MG TAB PO SCH ×3 (08:41→16:45)
[2018-09-08] MEDS: NIFEdipine XL 30 MG TAB PO SCH (08:42)
[2018-09-08] MEDS: Sulfameth/Trimethoprim DS 800-160mg TAB PO SCH ×2 (08:42→20:48)
[2018-09-08] MEDS: Trospium 20 MG TAB PO SCH ×2 (08:43→20:48)
[2018-09-08] MEDS: Carbidopa/Levodopa 25-250 mg Tablet PO SCH ×3 (08:43→20:48)
[2018-09-08] MEDS: Senokot S 8.6-50 MG TAB PO SCH ×2 (08:44→20:48)
[2018-09-08] MEDS: Polyethylene Glycol 3350 17 GM Packet PO SCH (08:45)
[2018-09-08] MEDS: Enoxaparin Sodium 40 MG/0.4 ML SYRINGE SC SCH (08:48)
[2018-09-08] MEDS: Clotrimazole 1% Cream 15 GM TUBE TOP SCH ×2 (08:49→20:48)
[2018-09-08] MEDS: HumaLOG 300 UNITS/3 ML VIAL SC PRN (16:44)
[2018-09-08] MEDS: Finasteride 5 MG TAB PO SCH (20:48)
[2018-09-08] MEDS: Atorvastatin Calcium 10 MG TAB PO SCH (20:48)
[2018-09-08] MEDS: Tamsulosin HCl 0.4 MG CAP PO SCH (20:48)
[2018-09-09] MEDS: Levothyroxine Sodium 50 MCG TAB PO SCH (05:48)
[2018-09-09] MEDS: Trospium 20 MG TAB PO SCH ×2 (08:31→21:00)
[2018-09-09] MEDS: Carbidopa/Levodopa 25-250 mg Tablet PO SCH ×3 (08:32→20:59)
[2018-09-09] MEDS: Sulfameth/Trimethoprim DS 800-160mg TAB PO SCH ×2 (08:32→21:00)
[2018-09-09] MEDS: Famotidine 20 MG TAB PO SCH (08:32)
[2018-09-09] MEDS: NIFEdipine XL 30 MG TAB PO SCH (08:32)
[2018-09-09] MEDS: Senokot S 8.6-50 MG TAB PO SCH ×2 (08:32→21:00)
[2018-09-09] MEDS: Glimepiride 2 MG TAB PO SCH ×3 (08:34→17:56)
[2018-09-09] MEDS: Polyethylene Glycol 3350 17 GM Packet PO SCH (08:34)
[2018-09-09] MEDS: Enoxaparin Sodium 40 MG/0.4 ML SYRINGE SC SCH (08:34)
[2018-09-09] MEDS: Clotrimazole 1% Cream 15 GM TUBE TOP SCH ×2 (08:35→20:59)
--- NOTE | 2018-09-09 09:05 | PRG ---
DATE OF SERVICE: 09/09/2018 SUBJECTIVE: Mr. Severino is a very pleasant 83-year-old white male, who was admitted to [facility] with urosepsis. He is on IV antibiotics, eventually switched over to oral antibiotics. He was transferred to [facility] for physical therapy and occupational therapy. The patient states he had a good day yesterday and is eating well. He is all sleepy this morning, but is still somewhat early. He is looking forward to getting his therapy again tomorrow. OBJECTIVE: VITAL SIGNS: This morning reveal blood pressure 126/58, pulse 63 to 93, respirations 18, O2 saturation 95% to 100% on room air, T-max 97.9. GENERAL: This is a well-developed, well-nourished, obese, white male, in no apparent distress at this time. HEENT: Reveals normocephalic and nontraumatic cranium. The pupils are equally round and reactive. Extraocular movements are intact. Nose and throat are moist. NECK: Supple without masses, nodes, or bruits. CHEST: Clear to auscultation. No rales, rhonchi, wheezes, or cough is noted. HEART: Reveals a regular rate and rhythm without murmurs, gallops, or rubs. ABDOMEN: Obese, soft, and nontender without organomegaly. Normal bowel sounds are noted in all 4 quadrants. No rebound or guarding is noted. : Reveals Fletcher catheter in place with clear urine output. EXTREMITIES: Reveal no clubbing or cyanosis, with again trace edema. The patient has good peripheral pulses. NEUROLOGIC: The patient is oriented x3. ASSESSMENT: 1. Diabetes, type 2, which is fairly stable with good blood sugar this morning, fasting was 122. 2. Hypertension, stable. 3. Parkinson disease. 4. History of bladder cancer. 5. BPH and urinary retention. 6. Hyperlipidemia. 7. Gastroesophageal reflux disease. 8. Degenerative joint disease. 9. Renal insufficiency, stage 3. 10. Generalized weakness. PLAN: 1. Continue to monitor the patient's Accu-Cheks before meals and at bedtime. 2. Continue to monitor the patient's blood pressure and adjust medications as needed. 3. Continue to monitor the patient's present medications. 4. Monitor the patient's renal indices for renal insufficiency. 5. Encourage the patient to eat a healthy heart diet. 6. Stress ulcer prophylaxis. 7. Decubitus precautions. 8. Continue Lovenox for DVT prophylaxis. 9. Fletcher catheter care. 10. Continue PT and OT. Job ID: [id number]
[2018-09-09] MEDS: Tamsulosin HCl 0.4 MG CAP PO SCH (21:00)
[2018-09-09] MEDS: Finasteride 5 MG TAB PO SCH (21:00)
[2018-09-09] MEDS: Atorvastatin Calcium 10 MG TAB PO SCH (21:00)
[2018-09-10] MEDS: Levothyroxine Sodium 50 MCG TAB PO SCH (05:35)
[2018-09-10] MEDS: Glimepiride 2 MG TAB PO SCH ×3 (08:50→16:40)
[2018-09-10] MEDS: Sulfameth/Trimethoprim DS 800-160mg TAB PO SCH ×2 (09:06→21:19)
[2018-09-10] MEDS: Famotidine 20 MG TAB PO SCH (09:07)
[2018-09-10] MEDS: NIFEdipine XL 30 MG TAB PO SCH (09:11)
[2018-09-10] MEDS: Carbidopa/Levodopa 25-250 mg Tablet PO SCH ×3 (09:11→21:19)
[2018-09-10] MEDS: Polyethylene Glycol 3350 17 GM Packet PO SCH (09:12)
[2018-09-10] MEDS: Enoxaparin Sodium 40 MG/0.4 ML SYRINGE SC SCH (09:12)
[2018-09-10] MEDS: Senokot S 8.6-50 MG TAB PO SCH ×2 (09:12→21:19)
[2018-09-10] MEDS: Trospium 20 MG TAB PO SCH ×2 (09:12→21:19)
[2018-09-10] MEDS: Clotrimazole 1% Cream 15 GM TUBE TOP SCH ×2 (09:13→21:19)
--- NOTE | 2018-09-10 14:05 | PRG ---
DATE OF SERVICE: 09/10/2018 SUBJECTIVE: Mr. Severino is up in his bed eating lunch. No family at bedside. He denies any concerns or questions. He stated that he did not do as well with therapy this morning as he did yesterday. He said that he felt lightheaded and so was unable to walk much further than in and beyond his room. He is doing well otherwise. Denies any chest pain. Denies any shortness of breath. OBJECTIVE: VITAL SIGNS: He is afebrile. Heart rate 92, respirations 22, oxygen saturation 91% on room air, blood pressure 114/54. CARDIOVASCULAR: S1, S2 plus. RESPIRATORY: Normal vesicular breath sounds. ABDOMEN: Soft, nontender. Bowel sounds in all quadrants. Obese. EXTREMITIES: Without cyanosis or clubbing. CENTRAL NERVOUS SYSTEM: Awake and responsive. Generalized weakness. Cranial nerves 2 through 12 grossly intact. LABORATORY DATA: He had a culture of his coccyx done which shows many Pseudomonas and some percent to Kathy, sensitive to gentamicin, meropenem, tobramycin, amikacin, but I really think it is more colonization. His wound does not look infected. We will continue to do wound care and avoid any antibiotics. IMPRESSION: 1. Resolving urinary tract infection and sepsis. 2. Parkinson disease. 3. Dyslipidemia. 4. Benign prostatic hypertrophy. 5. Diabetes mellitus, type 2. 6. Hypothyroidism. 7. Gastroesophageal reflux disease. 8. History of bladder cancer. PLAN: 1. Continue current medications. 2. 1800-calorie heart healthy ADA diet. 3. Decubitus care. 4. DVT and stress ulcer prophylaxis. He is on Lovenox and Protonix. 5. Decubitus precaution and care. 6. Fletcher catheter care. 7. Nutritional support. 8. Continue physical therapy. 9. Routine laboratory values. 10. Bactrim to be done on the 15. No family at bedside. Discussed with the patient and nursing in detail. Continue Accu-Cheks with sliding scale coverage. Monitor blood pressure and adjust medications as needed. Job ID: [id number]
[2018-09-10] MEDS: Atorvastatin Calcium 10 MG TAB PO SCH (21:19)
[2018-09-10] MEDS: Tamsulosin HCl 0.4 MG CAP PO SCH (21:19)
[2018-09-10] MEDS: Finasteride 5 MG TAB PO SCH (22:28)
[2018-09-11] MEDS: Levothyroxine Sodium 50 MCG TAB PO SCH (05:22)
[2018-09-11] MEDS: Glimepiride 2 MG TAB PO SCH ×3 (08:53→17:24)
[2018-09-11] MEDS: Polyethylene Glycol 3350 17 GM Packet PO SCH (08:53)
[2018-09-11] MEDS: Carbidopa/Levodopa 25-250 mg Tablet PO SCH ×3 (08:53→21:50)
[2018-09-11] MEDS: NIFEdipine XL 30 MG TAB PO SCH (08:53)
[2018-09-11] MEDS: Sulfameth/Trimethoprim DS 800-160mg TAB PO SCH ×2 (08:54→21:50)
[2018-09-11] MEDS: Enoxaparin Sodium 40 MG/0.4 ML SYRINGE SC SCH (08:54)
[2018-09-11] MEDS: Clotrimazole 1% Cream 15 GM TUBE TOP SCH ×2 (08:54→21:49)
[2018-09-11] MEDS: Famotidine 20 MG TAB PO SCH (08:54)
[2018-09-11] MEDS: Senokot S 8.6-50 MG TAB PO SCH ×2 (08:55→21:50)
[2018-09-11] MEDS: Trospium 20 MG TAB PO SCH ×2 (08:55→21:50)
--- NOTE | 2018-09-11 14:04 | PRG ---
DATE OF SERVICE: 09/11/2018 SUBJECTIVE: Mr. Severino is doing well. He apparently did great with his ambulation, as staff known, he apparently does not have the same success in the daytime. He is tolerating his diet. His spouse is in the room. No concerns or questions. OBJECTIVE: VITAL SIGNS: He is afebrile, heart rate 67, respirations 20, oxygen saturation 91% on room air, and blood pressure 116/56. CARDIOVASCULAR SYSTEM: S1 and S2 plus. RESPIRATORY SYSTEMS: Normal vesicular breath sounds. ABDOMEN: Soft, nontender. Bowel sounds in all quadrants. EXTREMITIES: Without cyanosis or clubbing. Peripheral pulses are palpable. CENTRAL NERVOUS SYSTEM: Awake and responsive. Cranial nerves 2 through 12 grossly intact. Generalized weakness. LABORATORY DATA: Blood sugars are 126, 126, 183, 87, and 135. IMPRESSION: 1. Resolving urinary tract infection. 2. History of bladder cancer. 3. Diabetes mellitus, type 2. 4. Hypertension. 5. Dyslipidemia. 6. Gastroesophageal reflux disease. 7. Parkinson disease. 8. Deconditioning. PLAN: 1. Continue current medications. 2. 1800-calorie heart healthy ADA diet. 3. Accu-Cheks with sliding scale coverage. 4. Monitor blood pressure and adjust medications as needed. 5. DVT and stress ulcer prophylaxis. 6. Decubitus precaution. 7. Routine laboratory values. 8. Continue oral antibiotics for a total of 10 days. 9. Outpatient followup with Urology for possible suprapubic catheter care. 10. Discussed with the patient and nursing in detail, and all questions answered. Job ID: [id number]
[2018-09-11] MEDS: Finasteride 5 MG TAB PO SCH (21:50)
[2018-09-11] MEDS: Tamsulosin HCl 0.4 MG CAP PO SCH (21:50)
[2018-09-11] MEDS: Atorvastatin Calcium 10 MG TAB PO SCH (21:50)
[2018-09-12] MEDS: Levothyroxine Sodium 50 MCG TAB PO SCH (06:10)
[2018-09-12] MEDS: Polyethylene Glycol 3350 17 GM Packet PO SCH (08:20)
[2018-09-12] MEDS: Famotidine 20 MG TAB PO SCH (08:20)
[2018-09-12] MEDS: Trospium 20 MG TAB PO SCH ×2 (08:20→20:59)
[2018-09-12] MEDS: Carbidopa/Levodopa 25-250 mg Tablet PO SCH ×3 (08:20→21:00)
[2018-09-12] MEDS: Sulfameth/Trimethoprim DS 800-160mg TAB PO SCH ×2 (08:20→20:59)
[2018-09-12] MEDS: Enoxaparin Sodium 40 MG/0.4 ML SYRINGE SC SCH (08:20)
[2018-09-12] MEDS: NIFEdipine XL 30 MG TAB PO SCH (08:20)
[2018-09-12] MEDS: Glimepiride 2 MG TAB PO SCH ×3 (08:20→17:58)
[2018-09-12] MEDS: Clotrimazole 1% Cream 15 GM TUBE TOP SCH ×2 (08:20→21:00)
[2018-09-12] MEDS: Senokot S 8.6-50 MG TAB PO SCH ×2 (08:20→20:59)
[2018-09-12] MEDS: Acetaminophen 325 MG TAB PO PRN (10:43)
[2018-09-12] MEDS: Atorvastatin Calcium 10 MG TAB PO SCH (20:59)
[2018-09-12] MEDS: Finasteride 5 MG TAB PO SCH (20:59)
[2018-09-12] MEDS: Tamsulosin HCl 0.4 MG CAP PO SCH (21:00)
[2018-09-13] MEDS ORDERED: Albuterol Sulfate 2.5 mg/3 ml Neb NEB SCH (00:45)
[2018-09-13] MEDS ORDERED: Albuterol Sulfate 2.5 mg/3 ml Neb NEB PRN (01:24)
[2018-09-13 05:16] LABS: Bilirubin Negative (Negative); Blood, Urine Trace (Negative); Clarity Clear (Clear); Glucose, Urine (Dipstick) Negative (Negative); Leukocyte Trace (Negative); Nitrite Negative (Negative); Protein, Urine (Dipstick) 100 mg/dL (Neg-Trace); Urobilinogen 0.2 mg/dL (0.2-1.0)
[2018-09-13 05:21] LABS: Band 7 % (5-11); Eosinophils 8 % (0-10); Hemoglobin 11.5 g/dL (14.0-18.0); Lymphocytes 5 % (21-51); MDiff Complete? YES; Mean Corpuscular HGB CONC 32.3 g/dL (32.0-36.0); Mean Corpuscular Hemoglobin 27.4 pg (27.0-31.0); Mean Corpuscular Volume 84.8 fL (78.0-98.0); Mean Platelet Volume 5.5 fL (7.4-10.4); Monocytes 3 % (0-10); Neutrophil 77 % (42-75); Platelet Count 376 thou/uL (130-400); Platelet Morphology Comment Appears Adequate; RBC Distribution Width 14.2 % (11.5-14.5); RBC Morphology Normal; Red Blood Cell (RBC) Count 4.22 mill/uL (4.70-6.10); White Blood Cell (WBC) Count 12.5 thou/uL (4.8-10.8)
[2018-09-13 05:23] LABS: Bacteria/HPF Rare-Few HPF (None Seen); Squamous Epithelial 0-3 HPF (0-3)
[2018-09-13 05:27] LABS: ALT (SGPT) Less than 6 U/L (8-55); AST (SGOT) 14 U/L (5-34); Albumin 3.2 g/dL (3.4-4.8); Alkaline Phosphatase 88 U/L (40-150); Anion Gap 13 mmol/L (10-20); BUN (Urea Nitrogen) 18 mg/dL (8.4-25.7); Bilirubin, Total 0.6 mg/dL (0.2-1.2); Calc. Creatinine Clearance 48 mL/min (70-130); Calcium 8.7 mg/dL (7.8-10.44); Carbon Dioxide 22 mmol/L (23-31); Chloride 102 mmol/L (98-107); Estimated GFR-MDRD 37; Globulin 3.7 g/dL (2.4-3.5); Glucose 134 mg/dL (83-110); Potassium 4.6 mmol/L (3.5-5.1); Protein, Total 6.9 g/dL (5.8-8.1); Sodium 132 mmol/L (136-145)
[2018-09-13] MEDS: Levothyroxine Sodium 50 MCG TAB PO SCH (06:11)
[2018-09-13] MEDS: Senokot S 8.6-50 MG TAB PO SCH ×2 (08:24→20:45)
[2018-09-13] MEDS: Acetaminophen 325 MG TAB PO PRN (08:24)
[2018-09-13] MEDS: Clotrimazole 1% Cream 15 GM TUBE TOP SCH ×2 (08:24→20:44)
[2018-09-13] MEDS: Glimepiride 2 MG TAB PO SCH ×3 (08:24→17:56)
[2018-09-13] MEDS: Carbidopa/Levodopa 25-250 mg Tablet PO SCH ×3 (08:24→20:45)
[2018-09-13] MEDS: NIFEdipine XL 30 MG TAB PO SCH (08:24)
[2018-09-13] MEDS: Polyethylene Glycol 3350 17 GM Packet PO SCH (08:24)
[2018-09-13] MEDS: Sulfameth/Trimethoprim DS 800-160mg TAB PO SCH ×2 (08:25→20:45)
[2018-09-13] MEDS: Enoxaparin Sodium 40 MG/0.4 ML SYRINGE SC SCH (08:25)
[2018-09-13] MEDS: Trospium 20 MG TAB PO SCH ×2 (08:25→20:45)
[2018-09-13] MEDS: Famotidine 20 MG TAB PO SCH (08:25)
--- NOTE | 2018-09-13 08:39 | RAD ---
PORTABLE CHEST: HISTORY: Shortness of breath. Wheezing. COMPARISON: 12/07/2017. FINDINGS: Lungs appear clear of infiltrate. The left base is poorly evaluated partially due to poor exposure a nd positioning. Lungs otherwise appear clear. IMPRESSION: Left basilar atelectasis or infiltrate cannot be excluded on this exam. Consider repeat upright PA a nd lateral views for better evaluation. POS: KONG
[2018-09-13] MEDS: HumaLOG 300 UNITS/3 ML VIAL SC PRN (12:05)
--- NOTE | 2018-09-13 13:53 | PRG ---
DATE OF SERVICE: 09/13/2018 SUBJECTIVE: Mr. Severino had an episode of wheezing and shortness of breath last night. He had to be placed on 2 L of oxygen. He also had a low-grade temperature of 99.5. Chest x-ray was done, which is unremarkable. CBC and CMP were done as well as BNP. His CBC showed a mildly elevated white count of 12.5. BNP was mildly elevated at 264, and his creatinine is 1.74. Flu swab was negative. This morning, he is pretty much back to his baseline and he is off his oxygen. Discussed with the patient and and he apparently does have episodes where he has difficulty swallowing and he does get a coughing spell. I have a feeling that he had very mild aspiration since this apparently happened while he was eating his dinner or soon after. I advised him to chew his food properly, eat small bites, and to alternate solids with liquids. I also advised nursing to monitor him closely and if he has any further coughing spells, then we will have Speech Therapy to evaluate him as well. No signs of it worsening and as states that this has been going on for ever, on and off, so we will continue to monitor. OBJECTIVE: VITAL SIGNS: He is afebrile, T-max 99.5, heart rate 80, respirations are 20, oxygen saturation 96% on room air, and blood pressure is 117/58. It is documented as on 2.5 L, discussed with nursing, he is actually on room air and they are going to change it. CARDIOVASCULAR: S1 and S2 plus. RESPIRATORY: Normal vesicular breath sounds. ABDOMEN: Soft and nontender. Bowel sounds heard in all quadrants. EXTREMITIES: Without cyanosis or clubbing. Trace edema. CENTRAL NERVOUS SYSTEM: Awake and responsive. Cranial nerves II through XII intact. Generalized weakness. LABORATORY DATA: As stated before. Sodium 132, potassium 4.6, BUN and creatinine are 18 and 1.75. Blood sugars have been 124, 157, 134, and 233. AST and ALT are normal. BNP is 258.4. White count is 12.5, H and H are 11.5 and 35.7. Flu swab is negative. IMPRESSION: 1. Possible minimal aspiration with bronchospasm, which has since resolved. 2. Resolved urinary tract infection. 3. Sacral decubitus, clean base, but culture positive, likely colonization, will not treat. 4. Diabetes mellitus type 2. 5. Hypertension. 6. Chronic kidney disease. 7. Dyslipidemia. 8. Parkinson disease. 9. History of bladder cancer. 10. Urinary retention requiring Fletcher catheter. PLAN: 1. Continue current medications. 2. 1800 calorie heart healthy ADA diet. 3. Aspiration precautions. 4. Breathing treatments as needed. 5. Monitor oxygen saturation. 6. DVT and stress ulcer prophylaxis. 7. Decubitus precautions. 8. Fletcher catheter care. 9. Routine laboratory values. 10. Physical therapy. 11. Discussed with the patient and spouse in detail and all questions were answered. Job ID: [id number]
[2018-09-13] MEDS: Tamsulosin HCl 0.4 MG CAP PO SCH (20:45)
[2018-09-13] MEDS: Finasteride 5 MG TAB PO SCH (20:45)
[2018-09-13] MEDS: Atorvastatin Calcium 10 MG TAB PO SCH (20:45)
[2018-09-14] MEDS: Levothyroxine Sodium 50 MCG TAB PO SCH (05:14)
[2018-09-14] MEDS: Polyethylene Glycol 3350 17 GM Packet PO SCH (08:04)
[2018-09-14] MEDS: Clotrimazole 1% Cream 15 GM TUBE TOP SCH ×2 (08:04→21:11)
[2018-09-14] MEDS: Enoxaparin Sodium 40 MG/0.4 ML SYRINGE SC SCH (08:05)
[2018-09-14] MEDS: Trospium 20 MG TAB PO SCH ×2 (08:06→21:12)
[2018-09-14] MEDS: Famotidine 20 MG TAB PO SCH (08:06)
[2018-09-14] MEDS: NIFEdipine XL 30 MG TAB PO SCH (08:07)
[2018-09-14] MEDS: Carbidopa/Levodopa 25-250 mg Tablet PO SCH ×3 (08:07→21:12)
[2018-09-14] MEDS: Senokot S 8.6-50 MG TAB PO SCH ×2 (08:08→21:12)
[2018-09-14] MEDS: Sulfameth/Trimethoprim DS 800-160mg TAB PO SCH ×2 (08:08→21:12)
[2018-09-14] MEDS: Glimepiride 2 MG TAB PO SCH ×3 (08:08→17:26)
[2018-09-14] MEDS: HumaLOG 300 UNITS/3 ML VIAL SC PRN (12:21)
[2018-09-14] MEDS: Finasteride 5 MG TAB PO SCH (21:11)
[2018-09-14] MEDS: Atorvastatin Calcium 10 MG TAB PO SCH (21:12)
[2018-09-14] MEDS: Tamsulosin HCl 0.4 MG CAP PO SCH (21:12)
[2018-09-15] MEDS: Levothyroxine Sodium 50 MCG TAB PO SCH (05:32)
[2018-09-15] MEDS: Polyethylene Glycol 3350 17 GM Packet PO SCH (08:34)
[2018-09-15] MEDS: Glimepiride 2 MG TAB PO SCH ×3 (08:34→17:12)
[2018-09-15] MEDS: Trospium 20 MG TAB PO SCH ×2 (08:34→21:01)
[2018-09-15] MEDS: Sulfameth/Trimethoprim DS 800-160mg TAB PO SCH ×2 (08:35→21:00)
[2018-09-15] MEDS: Carbidopa/Levodopa 25-250 mg Tablet PO SCH ×3 (08:35→21:01)
[2018-09-15] MEDS: Famotidine 20 MG TAB PO SCH (08:35)
[2018-09-15] MEDS: Enoxaparin Sodium 40 MG/0.4 ML SYRINGE SC SCH (08:35)
[2018-09-15] MEDS: NIFEdipine XL 30 MG TAB PO SCH (08:35)
[2018-09-15] MEDS: Senokot S 8.6-50 MG TAB PO SCH ×2 (08:35→21:01)
[2018-09-15] MEDS: Clotrimazole 1% Cream 15 GM TUBE TOP SCH ×2 (08:41→21:06)
--- NOTE | 2018-09-15 16:10 | PRG ---
DATE OF SERVICE: 09/15/2018 SUBJECTIVE: Mr. Severino is doing well. Denies any complaints. Resting comfortably. His is in the room. She states that she spoke with Dr. Abdalla during his last hospitalization and he wanted him to stop the tamsulosin and finasteride, and I agreed because he has this chronic indwelling Fletcher. No further episodes of confusion and wheezing. OBJECTIVE: VITAL SIGNS: He is afebrile. Heart rate 81, respirations 20, oxygen saturation 95% on room air, and blood pressure 130/60. CARDIOVASCULAR: S1 and S2 plus. Rate and rhythm regular. RESPIRATORY: Normal vesicular breath sounds. ABDOMEN: Soft and nontender. Bowel sounds heard in all quadrants. EXTREMITIES: Without cyanosis, clubbing, or chronic edema. CENTRAL NERVOUS SYSTEM: Awake and responsive. Cranial nerves 2 through 12 grossly intact. Improving weakness. IMPRESSION: 1. Resolved urinary tract infection. 2. Sacral decubitus, clean based. 3. Diabetes mellitus type 2. 4. Hypertension. 5. Chronic kidney disease, stage 3. 6. Dyslipidemia. 7. Parkinson disease. 8. History of bladder cancer. 9. Urinary retention, requiring Fletcher catheter. PLAN: 1. Discontinue Flomax and finasteride per urologist's recommendation, according to . 2. Continue other medications. 3. 1800-calorie heart healthy ADA diet. 4. DVT and stress ulcer prophylaxis. 5. Decubitus precautions. 6. Routine laboratory values. 7. Physical therapy. 8. Outpatient followup with Urology for possible suprapubic catheter placement. Job ID: [id number]
[2018-09-15] MEDS: Atorvastatin Calcium 10 MG TAB PO SCH (21:01)
[2018-09-16] MEDS: Levothyroxine Sodium 50 MCG TAB PO SCH (05:43)
[2018-09-16] MEDS: Glimepiride 2 MG TAB PO SCH ×3 (08:42→17:42)
[2018-09-16] MEDS: Enoxaparin Sodium 40 MG/0.4 ML SYRINGE SC SCH (08:43)
[2018-09-16] MEDS: Carbidopa/Levodopa 25-250 mg Tablet PO SCH ×3 (08:43→21:28)
[2018-09-16] MEDS: NIFEdipine XL 30 MG TAB PO SCH (08:44)
[2018-09-16] MEDS: Famotidine 20 MG TAB PO SCH (08:44)
[2018-09-16] MEDS: Sulfameth/Trimethoprim DS 800-160mg TAB PO SCH (08:46)
[2018-09-16] MEDS: Polyethylene Glycol 3350 17 GM Packet PO SCH (08:46)
[2018-09-16] MEDS: Trospium 20 MG TAB PO SCH ×2 (08:46→21:27)
[2018-09-16] MEDS: Senokot S 8.6-50 MG TAB PO SCH ×2 (08:46→21:28)
[2018-09-16] MEDS: Clotrimazole 1% Cream 15 GM TUBE TOP SCH ×2 (09:58→21:28)
[2018-09-16] MEDS: Atorvastatin Calcium 10 MG TAB PO SCH (21:27)
[2018-09-17] MEDS: Levothyroxine Sodium 50 MCG TAB PO SCH (05:46)
[2018-09-17] MEDS: Glimepiride 2 MG TAB PO SCH ×3 (08:35→16:55)
[2018-09-17] MEDS: Senokot S 8.6-50 MG TAB PO SCH (09:34)
[2018-09-17] MEDS: Trospium 20 MG TAB PO SCH (09:34)
[2018-09-17] MEDS: Polyethylene Glycol 3350 17 GM Packet PO SCH (09:35)
[2018-09-17] MEDS: NIFEdipine XL 30 MG TAB PO SCH (09:36)
[2018-09-17] MEDS: Famotidine 20 MG TAB PO SCH (09:37)
[2018-09-17] MEDS: Enoxaparin Sodium 40 MG/0.4 ML SYRINGE SC SCH (09:37)
[2018-09-17] MEDS: Carbidopa/Levodopa 25-250 mg Tablet PO SCH ×2 (09:37→15:29)
[2018-09-17] MEDS: Clotrimazole 1% Cream 15 GM TUBE TOP SCH (09:41)
--- NOTE | 2018-09-17 14:05 | PRG ---
DATE OF SERVICE: 09/17/2018 SUBJECTIVE: Mr. Severino apparently had an episode of shortness of breath last night when he was sleeping. He had to sit up by the side of the bed, he had to have a breathing treatment, had to be placed on oxygen. He felt better after about 15 minutes and went back to sleep. He denies any history of similar episodes in the past. I advised him and his that this sounds more like a paroxysmal nocturnal dyspnea, which is related to heart failure and the plan is for us to try a dose of Lasix and then check some labs in the morning and see how he responds. I will also review to see if there are any echo results in the chart. He denies any fever or chills. Denies any chest pain or shortness of breath. OBJECTIVE: VITAL SIGNS: He is afebrile. Heart rate 71, respirations 22, oxygen saturation 94% on nasal cannula, blood pressure 123/60. CARDIOVASCULAR SYSTEM: S1 and S2 plus. Rate and rhythm regular. RESPIRATORY: Normal vesicular breath sounds in all lung villeda. ABDOMEN: Soft, nontender, and obese. Bowel sounds heard in all quadrants. EXTREMITIES: 2 to 3+ pitting edema. LABORATORY DATA: Blood sugars are 129, 132, 143, 109, and 173. IMPRESSION: 1. Possible acute congestive heart failure. 2. Resolved urinary tract infection. 3. Diabetes mellitus type 2. 4. Hypertension. 5. Dyslipidemia. 6. Parkinson disease. 7. History of benign prostatic hyperplasia and urinary retention. PLAN: 1. Lasix 40 mg p.o. now. 2. Recheck BMP and BNP in the morning. 3. Monitor respiratory status. 4. Look and see if there are any echo results. If not, we will order an echocardiogram. 5. Continue other medications. 6. Physical therapy. 7. Titrate oxygen. 8. 1800 calorie heart healthy ADA diet. 9. Accu-Cheks with sliding scale coverage. 10. Discussed with the patient and in detail. All questions answered. Job ID: [id number]
[2018-09-17] MEDS ORDERED: Furosemide 40 MG TAB PO SCH (14:30)
[2018-09-17] MEDS: HumaLOG 300 UNITS/3 ML VIAL SC PRN (16:55)
[2018-09-17] MEDS ORDERED: Sodium Chloride 0.9% 20 ML ONE (18:08)
[2018-09-17 18:41] VITALS: BP 130/67; TEMP 97.2
[2018-09-18] MEDS ORDERED: Furosemide 40 MG TAB PO SCH (07:30)
== END 2018-09-17 19:00 | disposition short-term general hospital (02) | DRG 690 ==
LOC: NAV ACUTE 17:14
PROVIDERS: ADMIT Internal Medicine; ATTEND Internal Medicine
DX: N39.0 Urinary tract infection, site not specified (principal); I13.0 Hypertensive heart and chronic kidney disease with heart failure and stage 1 through stage 4 chronic kidney disease, or unspecified chronic kidney disease; E11.22 Type 2 diabetes mellitus with diabetic chronic kidney disease; G20 Parkinson's disease; N40.1 Benign prostatic hyperplasia with lower urinary tract symptoms; R33.8 Other retention of urine; E78.5 Hyperlipidemia, unspecified; M19.90 Unspecified osteoarthritis, unspecified site; K21.9 Gastro-esophageal reflux disease without esophagitis; N18.3 Chronic kidney disease, stage 3 (moderate); R53.1 Weakness; R53.81 Other malaise; E03.9 Hypothyroidism, unspecified; J98.01 Acute bronchospasm; L89.159 Pressure ulcer of sacral region, unspecified stage; I50.9 Heart failure, unspecified; Z85.51 Personal history of malignant neoplasm of bladder; Z90.49 Acquired absence of other specified parts of digestive tract; Z90.89 Acquired absence of other organs; Z98.890 Other specified postprocedural states; Z88.1 Allergy status to other antibiotic agents; Z79.4 Long term (current) use of insulin; Z79.2 Long term (current) use of antibiotics
CPT/HCPCS: 36415; 36416; 71045; 80053; 81001; 83605; 83880; 85025; 87040; 87070; 87077; 87086; 87186; 87205; 87804; 94640; J1650; J7611

== ENCOUNTER 2018-09-20 16:28 | Inpatient (IN) | payer MEDICARE ==
[2018-09-20 17:46] VITALS: BMI 31.6
[2018-09-20] MEDS ORDERED: Acetaminophen 500 MG TAB PO PRN (18:46)
[2018-09-20] MEDS ORDERED: Albuterol Sulfate 2.5 mg/3 ml Neb NEB PRN (18:46)
[2018-09-20] MEDS ORDERED: Polyethylene Glycol 3350 17 GM Packet PO PRN (18:49)
[2018-09-20] MEDS ORDERED: Senokot S 8.6-50 MG TAB PO PRN (18:51)
[2018-09-20] MEDS: Carbidopa/Levodopa 25-250 mg Tablet PO SCH (22:24)
[2018-09-20] MEDS: Atorvastatin Calcium 10 MG TAB PO SCH (22:24)
[2018-09-20] MEDS: Famotidine 20 MG TAB PO SCH (22:24)
[2018-09-20] MEDS: Clotrimazole 1% Cream 15 GM TUBE TOP SCH (22:25)
[2018-09-21 06:00] LABS: #Basophils 0.1 thou/uL (0.0-0.2); #Eosinphils 0.4 thou/uL (0.0-0.7); #Lymphocytes 1.1 thou/uL (1.20-3.40); #Monocytes 1.1 thou/uL (0.11-0.59); #Neutrophils 5.8 thou/uL (1.40-6.50); %Basophils 1.5 % (0.0-1.0); %Lymphocytes 12.9 % (21.0-51.0); %Monocytes 12.4 % (0.0-10.0); %Neutrophils 68.1 % (42.0-75.0); Hemoglobin 11.9 g/dL (14.0-18.0); Mean Corpuscular HGB CONC 30.7 g/dL (32.0-36.0); Mean Corpuscular Hemoglobin 26.5 pg (27.0-31.0); Mean Corpuscular Volume 86.2 fL (78.0-98.0); Mean Platelet Volume 5.8 fL (7.4-10.4); Platelet Count 349 thou/uL (130-400); RBC Distribution Width 14.6 % (11.5-14.5); White Blood Cell (WBC) Count 8.5 thou/uL (4.8-10.8)
[2018-09-21] MEDS: Levothyroxine Sodium 50 MCG TAB PO SCH (06:05)
[2018-09-21 06:16] LABS: Anion Gap 11 mmol/L (10-20); BUN (Urea Nitrogen) 13 mg/dL (8.4-25.7); Calc. Creatinine Clearance 65 mL/min (70-130); Calcium 8.5 mg/dL (7.8-10.44); Carbon Dioxide 26 mmol/L (23-31); Chloride 99 mmol/L (98-107); Estimated GFR-MDRD 55; Glucose 121 mg/dL (83-110); Potassium 4.3 mmol/L (3.5-5.1); Sodium 132 mmol/L (136-145)
[2018-09-21] MEDS: Glimepiride 2 MG TAB PO SCH ×3 (09:36→17:24)
[2018-09-21] MEDS: Carbidopa/Levodopa 25-250 mg Tablet PO SCH ×4 (09:37→20:53)
[2018-09-21] MEDS: Clotrimazole 1% Cream 15 GM TUBE TOP SCH ×2 (09:37→20:53)
--- NOTE | 2018-09-21 13:13 | HP ---
CHIEF COMPLAINTS: The patient with recent diagnosis of cardiac tamponade, requiring placement of window, now back here for therapy. BRIEF HISTORY: This is a very pleasant 83-year-old male, recently admitted to [facility] for urosepsis. He recovered well and was felt to be a candidate for inpatient rehabilitation and transferred here on oral antibiotics for a few more days. He apparently is supposed to follow up with his urologist for possible suprapubic catheter placement. While here, he has been doing well and slowly improving except about 4 days ago, he got an episode of nocturnal shortness of breath and lightheadedness, where he had a sitter. He was given breathing treatments and placed on oxygen and he felt better. I examined him and really did not notice anything significant, but because of his paroxysmal nocturnal dyspnea and no history of heart disease, I ordered an echocardiogram. Echocardiogram came back positive for pericardial effusion with tamponade physiology, and so, I spoke withAliza Orantes and [facility]. There, he underwent a pericardial window and was felt to have improved enough that he can continue with his therapy, and so has been transferred back here. Currently, he is resting in bed and denies any complaints. He does have his Fletcher catheter. He denies any chest pain or shortness of breath. He is able to lie flat in bed at night. No family at bedside. No fever or chills. PAST MEDICAL HISTORY: 1. Diabetes mellitus, type 2. 2. Hypertension. 3. Dyslipidemia. 4. Parkinson disease. 5. Degenerative joint disease. 6. History of bladder cancer. 7. Benign prostatic hypertrophy and urinary retention, requiring chronic indwelling Fletcher. 8. Gastroesophageal reflux disease. 9. Resolved urinary tract infection. 10. Pericardial effusion with tamponade physiology status post window. PAST SURGICAL HISTORY: 1. Appendectomy. 2. Bladder cancer removal. 3. Tonsillectomy. 4. Adenoidectomy. 5. Hip surgery. 6. Cholecystectomy. 7. Soft tissue mass excision. 8. Pericardial window placement. ALLERGIES: TO LEVAQUIN. FAMILY HISTORY: Positive for hypertension, diabetes mellitus, and cerebrovascular disease. PSYCHOSOCIAL HISTORY: Denies any tobacco or alcohol use. No recreational drug use. He lives at home with his . MEDICATIONS: He has been sent here on the following medications. 1. Tylenol 1000 mg p.o. q.6 p.r.n. 2. Sinemet 250/25 one tablet q.i.d. 3. Lotrimin cream topical b.i.d. 4. Glimepiride half a tablet, which is 1 mg t.i.d. 5. Levoxyl 50 mcg daily. 6. Metoprolol succinate 25 mg daily. 7. MiraLAX 17 g in 8 ounce of water daily. 8. Pravastatin 40 mg daily. 9. Zantac 150 mg at bedtime. 10. Senokot-S p.r.n. REVIEW OF SYSTEMS: CARDIOVASCULAR SYSTEM: Denies any chest pain, shortness of breath, palpitations, PND, orthopnea, or pedal edema. RESPIRATORY SYSTEM: Denies any chronic cough, expectoration, or pleuritic type chest pain. GASTROINTESTINAL SYSTEM: Denies any nausea, vomiting, diarrhea, constipation, hematemesis, melena, or hematochezia. GENITOURINARY SYSTEM: Denies any frequency, urgency, dysuria, or hematuria. CENTRAL NERVOUS SYSTEM: No focal numbness, weakness, or fainting spells other than the tremors and minimal rigidity from his Parkinson's. PHYSICAL EXAMINATION: GENERAL: A pleasant 83-year-old male, who is resting comfortably and in no apparent distress. No family at bedside. He responds appropriate to questions. VITAL SIGNS: He is afebrile, heart rate 71, respirations 28, oxygen saturation 97% on room air, and blood pressure 130/65. HEENT: Normocephalic and atraumatic. Pupils equally reactive to light and accommodation. Extraocular muscles intact. No JVD, thyromegaly, cervical lymphadenopathy, or throat exudate. No carotid bruits. CARDIOVASCULAR SYSTEM: S1 and S2 plus. Rate and rhythm regular. RESPIRATORY SYSTEM: Normal vesicular breath sounds heard in all lung villeda. ABDOMEN: Soft, obese, nontender. Bowel sounds heard in all quadrants. EXTREMITIES: Without cyanosis or clubbing, 1 to 2+ edema, chronic. : Fletcher catheter in place. CENTRAL NERVOUS SYSTEM: AAO x3. Cranial nerves 2 through 12 intact. Generalized weakness. LABORATORY VALUES: Pending. IMPRESSION: 1. Pericardial effusion with tamponade physiology, requiring placement of a pericardial window. 2. Diabetes mellitus, type 2. 3. Hypertension. 4. Dyslipidemia. 5. Hypothyroidism. 6. Parkinson disease. 7. History of bladder cancer. 8. Benign prostatic hypertrophy. 9. Deconditioning. PLAN: 1. Continue discharge medications. 2. 1800 calorie heart healthy ADA diet. 3. Accu-Cheks with sliding scale coverage. 4. Monitor blood pressure and adjust medications as needed. 5. Fletcher catheter care. 6. DVT and stress ulcer prophylaxis. 7. Decubitus precautions. 8. Routine laboratory values. 9. PT/OT eval and treat. 10. Monitor for any decompensation of his pericardial effusion and monitor renal function and blood counts on a routine basis. Discussed with the patient in detail. No family at bedside. Job ID: [id number]
[2018-09-21] MEDS: Famotidine 20 MG TAB PO SCH (20:53)
[2018-09-21] MEDS: Atorvastatin Calcium 10 MG TAB PO SCH (20:53)
[2018-09-22] MEDS: Levothyroxine Sodium 50 MCG TAB PO SCH (05:35)
[2018-09-22] MEDS ORDERED: Dextrose 5% in Water 1,000 ML IV PRN (06:35)
[2018-09-22] MEDS ORDERED: Dextrose 50% Abboject 50 ML SYRINGE IVP PRN (06:35)
[2018-09-22] MEDS: Clotrimazole 1% Cream 15 GM TUBE TOP SCH ×2 (09:21→20:27)
[2018-09-22] MEDS: Carbidopa/Levodopa 25-250 mg Tablet PO SCH ×4 (09:21→20:26)
[2018-09-22] MEDS: Glimepiride 2 MG TAB PO SCH ×3 (09:22→17:56)
[2018-09-22] MEDS: Atorvastatin Calcium 10 MG TAB PO SCH (20:26)
[2018-09-22] MEDS: Famotidine 20 MG TAB PO SCH (20:27)
[2018-09-23] MEDS: Levothyroxine Sodium 50 MCG TAB PO SCH (05:37)
[2018-09-23] MEDS: Carbidopa/Levodopa 25-250 mg Tablet PO SCH ×4 (08:36→19:47)
[2018-09-23] MEDS: Clotrimazole 1% Cream 15 GM TUBE TOP SCH ×2 (08:37→19:47)
[2018-09-23] MEDS: Glimepiride 2 MG TAB PO SCH (08:38)
--- NOTE | 2018-09-23 09:47 | RAD ---
PORTABLE CHEST: 09/23/2018 PROVIDED CLINICAL HISTORY: Congestive heart failure. COMPARISON: 09/18/2018 FINDINGS: Evaluation is limited due to patient rotation. There is persistent left basilar pleural parenchymal opacity. The right lung remains clear. There is no evidence for pneumothorax. IMPRESSION: Rotated study without definite evidence for change. POS: [facility]
--- NOTE | 2018-09-23 11:49 | PRG ---
DATE OF SERVICE: 09/22/[address] Lee Smith. SUBJECTIVE: The patient is a pleasant 83-year-old white male with a history of recent admission for deconditioning secondary to urosepsis, who was subsequently found to be short of breath and after evaluation, echocardiogram found to have a pericardial effusion with tamponade. This required a pericardial window at [facility] with improvement in his symptoms of shortness of breath and has been transferred and resting, waiting for more therapy. He does appear to be somewhat short of breath upon lying in the bed, but states he denies any symptoms of shortness of breath or chest pain. OBJECTIVE: VITAL SIGNS: Temperature of 97.6, pulse 69, respirations 18, O2 saturations 96% on room air, and blood pressure 122/58. LUNGS: Clear. CARDIAC: Regular rhythm. ABDOMEN: Soft and nontender. SKIN/EXTREMITIES: No edema. ASSESSMENT: 1. Resolving pericardial effusion and tamponade with some mild dyspnea, although no symptoms, but we will get x-ray to confirm no changes. 2. Improving deconditioning, status post urosepsis and await further PT/OT next week. PLAN: 1. Continue to monitor closely for signs of decompensation of cardiac function. 2. Continue PT/OT next week. 3. Continue Accu-Cheks to monitor and titrate and control diabetes. 4. Continue to monitor vital signs closely. Job ID: [id number]
--- NOTE | 2018-09-23 19:23 | PRG ---
DATE OF SERVICE: 09/23/2018 SUBJECTIVE: The patient feels well, lying in bed, lying flat with no complaints of chest pain, shortness of breath, had a restful day-to-day and feels he is getting stronger with no dysuria or hematuria, fever, or chills. OBJECTIVE: VITAL SIGNS: Show O2 sat is 95% on room air. No new vital signs today, and we will discuss with nurses. LUNGS: Clear. CARDIAC: Showed regular rhythm. ABDOMEN: Soft and nontender. SKIN/EXTREMITIES: Showed no edema. ASSESSMENT: 1. Resolving urosepsis. 2. Improving deconditioning. 3. Resolved pericardial effusion. No evidence of tamponade. 4. Stable diabetes, controlled to goal. PLAN: Continue PT and OT. Continue to monitor for signs of heart failure, tamponade. Continue Accu-Cheks to monitor and titrate and control diabetes. Continue Parkinson medicines. Job ID: [id number]
[2018-09-23] MEDS: Atorvastatin Calcium 10 MG TAB PO SCH (19:47)
[2018-09-23] MEDS: Famotidine 20 MG TAB PO SCH (19:47)
[2018-09-24] MEDS: Levothyroxine Sodium 50 MCG TAB PO SCH (05:21)
[2018-09-24] MEDS: Glimepiride 2 MG TAB PO SCH (09:07)
[2018-09-24] MEDS: Carbidopa/Levodopa 25-250 mg Tablet PO SCH ×4 (09:07→21:01)
[2018-09-24] MEDS: Clotrimazole 1% Cream 15 GM TUBE TOP SCH ×2 (09:10→21:02)
--- NOTE | 2018-09-24 09:51 | PRG ---
DATE OF SERVICE: 09/24/2018 SUBJECTIVE: Mr. Severino states that he feels a little bit weaker today. He did not have any therapy over the weekend. His is not in the room. Nursing apparently also noticed a possible scrotal abscess with some purulent drainage. Unable to examine him now since he is working with therapy. Cultures have been sent. We will start him on empiric Bactrim. We will also have nursing talk with his urologist since the patient is apparently due for a Fletcher catheter change. He was supposed to follow up with his urologist for a possible suprapubic catheter placement, so we will check with his urologist to see if he wants us to change the catheter now or wait until he sees him in the office for evaluation. OBJECTIVE: VITAL SIGNS: The patient is afebrile. Heart rate 63, respirations 20, oxygen saturation 92% on room air, blood pressure 146/67. CARDIOVASCULAR: S1, S2 plus. RESPIRATORY: Normal vesicular breath sounds. ABDOMEN: Soft, nontender. Bowel sounds heard in all quadrants. EXTREMITIES: Without cyanosis, clubbing, 1 to 2+ edema, chronic. CENTRAL NERVOUS SYSTEM: Awake and responsive. Cranial nerves 2 through 12 intact. Some muscle rigidity is noted. Blood sugars are 155, 115, 138, 100. IMPRESSION: 1. Possible scrotal abscess. 2. Benign prostatic hyperplasia with urinary retention, requiring Fletcher catheter placement. 3. History of bladder cancer. 4. Diabetes mellitus type 2. 5. Hypertension. 6. Dyslipidemia. 7. Pericardial effusion, status post placement of pericardial window. 8. Parkinson disease. 9. Recurrent urinary tract infection. PLAN: 1. Continue current medications. 2. Nutritional support with 1800 calorie heart healthy ADA diet. 3. Fletcher catheter care. 4. Nursing to contact Urology for coordination of Fletcher change and informing them of the scrotal abscess. 5. Empiric Bactrim. 6. Accu-Cheks with sliding scale coverage. 7. DVT and stress ulcer prophylaxis. 8. Decubitus precautions. 9. Discussed with the patient in detail. 10. No family at bedside. Job ID: [id number]
[2018-09-24] MEDS ORDERED: Sulfameth/Trimethoprim DS 800-160mg TAB PO SCH (10:15)
[2018-09-24] MEDS: Enoxaparin Sodium 40 MG/0.4 ML SYRINGE SC SCH (21:01)
[2018-09-24] MEDS: Sulfameth/Trimethoprim DS 800-160mg TAB PO SCH (21:01)
[2018-09-24] MEDS: Atorvastatin Calcium 10 MG TAB PO SCH (21:01)
[2018-09-24] MEDS: Famotidine 20 MG TAB PO SCH (21:01)
[2018-09-25 05:32] LABS: Anion Gap 12 mmol/L (10-20); BUN (Urea Nitrogen) 17 mg/dL (8.4-25.7); Calc. Creatinine Clearance 70 mL/min (70-130); Calcium 8.8 mg/dL (7.8-10.44); Carbon Dioxide 24 mmol/L (23-31); Chloride 104 mmol/L (98-107); Estimated GFR-MDRD 59; Glucose 110 mg/dL (83-110); Potassium 4.5 mmol/L (3.5-5.1); Sodium 135 mmol/L (136-145)
[2018-09-25 05:42] LABS: #Basophils 0.1 thou/uL (0.0-0.2); #Eosinphils 1.7 thou/uL (0.0-0.7); #Lymphocytes 1.3 thou/uL (1.20-3.40); #Monocytes 0.8 thou/uL (0.11-0.59); #Neutrophils 5.4 thou/uL (1.40-6.50); %Basophils 1.3 % (0.0-1.0); %Lymphocytes 14.5 % (21.0-51.0); %Monocytes 8.4 % (0.0-10.0); %Neutrophils 57.9 % (42.0-75.0); Hemoglobin 12.9 g/dL (14.0-18.0); Mean Corpuscular HGB CONC 31.1 g/dL (32.0-36.0); Mean Corpuscular Hemoglobin 26.4 pg (27.0-31.0); Mean Corpuscular Volume 84.9 fL (78.0-98.0); Mean Platelet Volume 5.6 fL (7.4-10.4); Platelet Count 413 thou/uL (130-400); RBC Distribution Width 14.4 % (11.5-14.5); Red Blood Cell (RBC) Count 4.87 mill/uL (4.70-6.10); White Blood Cell (WBC) Count 9.3 thou/uL (4.8-10.8)
[2018-09-25] MEDS: Levothyroxine Sodium 50 MCG TAB PO SCH (06:31)
[2018-09-25] MEDS: Carbidopa/Levodopa 25-250 mg Tablet PO SCH ×4 (08:24→21:00)
[2018-09-25] MEDS: Glimepiride 2 MG TAB PO SCH (08:24)
[2018-09-25] MEDS: Sulfameth/Trimethoprim DS 800-160mg TAB PO SCH ×2 (08:25→21:00)
[2018-09-25] MEDS: Clotrimazole 1% Cream 15 GM TUBE TOP SCH ×2 (08:31→21:00)
--- NOTE | 2018-09-25 14:16 | PRG ---
DATE OF SERVICE: 09/25/2018 SUBJECTIVE: Mr. Severino was seen by Urology this morning. He had his Fletcher catheter replaced. His scrotal abscess apparently is old and it is much smaller in size. They are happy with its progress. He denies any questions or concerns. His is in the room. OBJECTIVE: VITAL SIGNS: He is afebrile. Heart rate 66, respirations 22, oxygen saturation 93% on room air, blood pressure 131/63. CARDIOVASCULAR SYSTEM: S1 and S2 plus. RESPIRATORY SYSTEM: Normal vesicular breath sounds. ABDOMEN: Soft, nontender. Bowel sounds heard in all quadrants. EXTREMITIES: Without cyanosis or clubbing. 2+ edema. CENTRAL NERVOUS SYSTEM: AAO x3. Cranial nerves 2 through 12 intact. Muscle spasticity and rigidity are noted. LABORATORY DATA: White count is 9.3, H and H is 12.9 and 41.3. Sodium 133, potassium 4.5, BUN and creatinine 17 and 1.17. Blood sugars are 140, 187, 110, and 96. Microbiology of scrotal abscess drainage showed growing gram-negative rods. IMPRESSION: 1. Scrotal abscess draining purulent material, apparently much improved compared to before. 2. Benign prostatic hyperplasia with retention, requiring Fletcher catheter replacement. 3. History of bladder cancer. 4. Diabetes mellitus type 2. 5. Hypertension. 6. Dyslipidemia. 7. Parkinson disease. PLAN: 1. Continue current medications. 2. Await culture and sensitivity. May need to change his Bactrim to something else. 3. 1800 calorie heart healthy ADA diet. 4. Accu-Cheks with sliding scale coverage. 5. Monitor blood pressure and adjust medications as needed. 6. Continue physical therapy. 7. Fletcher catheter care. 8. Routine laboratory values. 9. Discussed with the patient and family and nursing in detail. All questions answered. Job ID: [id number]
[2018-09-25] MEDS: Atorvastatin Calcium 10 MG TAB PO SCH (21:00)
[2018-09-25] MEDS: Famotidine 20 MG TAB PO SCH (21:00)
[2018-09-25] MEDS: Enoxaparin Sodium 40 MG/0.4 ML SYRINGE SC SCH (21:00)
[2018-09-26] MEDS: Levothyroxine Sodium 50 MCG TAB PO SCH (04:58)
[2018-09-26] MEDS: Glimepiride 2 MG TAB PO SCH (09:03)
[2018-09-26] MEDS: Sulfameth/Trimethoprim DS 800-160mg TAB PO SCH (09:03)
[2018-09-26] MEDS: Carbidopa/Levodopa 25-250 mg Tablet PO SCH ×4 (09:03→20:35)
[2018-09-26] MEDS: Clotrimazole 1% Cream 15 GM TUBE TOP SCH (09:39)
--- NOTE | 2018-09-26 13:54 | PRG ---
DATE OF SERVICE: 09/26/2018 SUBJECTIVE: Mr. Severino is doing well. Denies any complaints. Resting comfortably. Tolerating his therapy and his diet. No fever or chills. No family at bedside. Discussed with nursing. OBJECTIVE: VITAL SIGNS: He is afebrile. Heart rate 68, respirations 16, oxygen saturation 94%, blood pressure 131/66. CARDIOVASCULAR SYSTEM: S1, S2 plus. RESPIRATORY SYSTEM: Vesicular breath sounds. ABDOMEN: Soft, nontender. Bowel sounds heard in all quadrants. EXTREMITIES: Without cyanosis, clubbing. Peripheral pulses are palpable. 2+ edema, chronic. CENTRAL NERVOUS SYSTEM: Awake and oriented. Cranial nerves 2 through 12 intact. Generalized weakness. LABORATORY DATA: Bacterial culture from his scrotal drainage is growing Klebsiella and Pseudomonas. Klebsiella is sensitive to ciprofloxacin, but resistant to Bactrim. IMPRESSION: 1. Scrotal abscess, chronic. We will switch him from Bactrim to a third generation cephalosporin as he is allergic to fluoroquinolones. 2. Parkinson's disease. 3. Diabetes mellitus, type 2. 4. Hypertension. 5. Dyslipidemia. 6. History of bladder cancer. 7. Benign prostatic hypertrophy and urinary retention. PLAN: 1. Discontinue Bactrim and start Omnicef 300 mg p.o. b.i.d. 2. Await sensitivity for Pseudomonas. 3. Continue current medications. 4. 1800-calorie heart-healthy ADA diet. 5. Accu-Cheks with sliding scale coverage. 6. Monitor blood pressure and adjust medications. 7. Fletcher catheter care. 8. Physical therapy. 9. Routine laboratory values. 10. Discussed with the patient in detail. All questions answered. Job ID: [id number]
[2018-09-26] MEDS: Atorvastatin Calcium 10 MG TAB PO SCH (20:35)
[2018-09-26] MEDS: Cefdinir 300 MG CAP PO SCH (20:35)
[2018-09-26] MEDS: Enoxaparin Sodium 40 MG/0.4 ML SYRINGE SC SCH (20:36)
[2018-09-26] MEDS: Famotidine 20 MG TAB PO SCH (20:36)
[2018-09-27] MEDS: Levothyroxine Sodium 50 MCG TAB PO SCH (05:13)
[2018-09-27] MEDS: Clotrimazole 1% Cream 15 GM TUBE TOP SCH ×3 (05:13→21:30)
[2018-09-27] MEDS: Cefdinir 300 MG CAP PO SCH ×2 (08:43→21:29)
[2018-09-27] MEDS: Glimepiride 2 MG TAB PO SCH (08:44)
[2018-09-27] MEDS: Carbidopa/Levodopa 25-250 mg Tablet PO SCH ×4 (08:45→21:29)
--- NOTE | 2018-09-27 13:35 | PRG ---
DATE OF SERVICE: 09/27/2018 SUBJECTIVE: Mr. Severino is sitting up in his chair, dozing. He is arousable. He denies any concerns or questions. He is waiting on his lunch. No family at bedside. OBJECTIVE: VITAL SIGNS: He is afebrile, heart rate 65, respirations 18, oxygen saturation 98% on 1 L nasal cannula, and blood pressure 136/64. CARDIOVASCULAR SYSTEM: S1 and S2 plus. RESPIRATORY SYSTEM: Normal vesicular breath sounds. ABDOMEN: Soft and nontender. Bowel sounds heard in all quadrants. EXTREMITIES: Without cyanosis or clubbing. Peripheral pulses are palpable. He does have chronic venous insufficiency and chronic edema. CENTRAL NERVOUS SYSTEM: AAO x3. Cranial nerves 2 through 12 intact. IMPRESSION: 1. Pericardial effusion with tamponade physiology requiring placement of a pericardial window. 2. Diabetes mellitus type 2. 3. Hypertension. 4. Dyslipidemia. 5. Benign prostatic hyperplasia. 6. History of bladder tumor. 7. Urinary retention. 8. Parkinson disease. PLAN: 1. Continue current medications. 2. Continue to titrate oxygen. 3. An 1800-calorie heart healthy ADA diet. 4. Accu-Cheks with sliding scale coverage. 5. Monitor blood pressure and adjust medications. 6. DVT and stress ulcer prophylaxis. 7. Decubitus precautions. 8. Routine laboratory values. 9. Continue antibiotics for his scrotal abscesses. Job ID: [id number]
[2018-09-27] MEDS: Enoxaparin Sodium 40 MG/0.4 ML SYRINGE SC SCH (21:29)
[2018-09-27] MEDS: Famotidine 20 MG TAB PO SCH (21:29)
[2018-09-27] MEDS: Atorvastatin Calcium 10 MG TAB PO SCH (21:29)
[2018-09-28] MEDS: Levothyroxine Sodium 50 MCG TAB PO SCH (05:20)
[2018-09-28] MEDS: Cefdinir 300 MG CAP PO SCH ×2 (08:31→20:51)
[2018-09-28] MEDS: Glimepiride 2 MG TAB PO SCH (08:32)
[2018-09-28] MEDS: Carbidopa/Levodopa 25-250 mg Tablet PO SCH ×4 (08:33→20:51)
[2018-09-28] MEDS: Clotrimazole 1% Cream 15 GM TUBE TOP SCH ×2 (08:35→20:52)
[2018-09-28] MEDS: Famotidine 20 MG TAB PO SCH (20:51)
[2018-09-28] MEDS: Atorvastatin Calcium 10 MG TAB PO SCH (20:51)
[2018-09-28] MEDS: Enoxaparin Sodium 40 MG/0.4 ML SYRINGE SC SCH (20:51)
[2018-09-29] MEDS: Levothyroxine Sodium 50 MCG TAB PO SCH (05:35)
--- NOTE | 2018-09-29 08:10 | PRG ---
DATE OF SERVICE: 09/29/2018 SUBJECTIVE: Mr. Severino is a very pleasant 83-year-old white male, initially admitted to [facility] with urosepsis. He was started on IV antibiotics and switched to oral antibiotics. He was transferred to [facility] for PT and OT. He started having some difficulty with his blood pressure and heart and had an echocardiogram, which did reveal a pericardial effusion tamponade. He was transferred back to [facility] where he had a cardiac window done. He is now back here to continue his physical therapy and occupational therapy. He is also followed by Dr. Abdalla, is considering placing a suprapubic catheter. The patient states he is doing well today. He is hungry and ready for his breakfast. OBJECTIVE: VITAL SIGNS: Reveal blood pressure this morning is 115/58, pulse 69, respirations 22, O2 saturation 97-99% on 1 L nasal cannula, and T-max 97.9. GENERAL: This is a well-developed, well-nourished, slightly obese white male, in no apparent distress at this time. HEENT: Normocephalic and nontraumatic cranium. Pupils are equal, round, and reactive. Extraocular movements are intact. Nose and throat are moist. NECK: Supple without masses, nodes or bruits. CHEST: Clear to auscultation. No rales, rhonchi, wheezes, or cough is noted. HEART: Reveals a regular rate and rhythm without murmurs, gallops, or rubs. ABDOMEN: Soft, nontender without organomegaly. Normal bowel sounds are noted. Somewhat obese. No rebound or guarding is noted. : Reveals Fletcher catheter still in place with clear urine output. EXTREMITIES: Reveal no clubbing or cyanosis, but trace edema is noted. The patient does have good peripheral pulses. The patient is oriented x3. ASSESSMENT: 1. Fairly stable diabetes type 2. 2. Hypertension. 3. Parkinson disease. 4. History of bladder cancer. 5. BPH and urinary retention. Considering a suprapubic catheter by Dr. Abdalla. 6. Hyperlipidemia. 7. Gastroesophageal reflux disease. 8. Degenerative joint disease. 9. Renal insufficiency, stage 3. 10. Generalized weakness. PLAN: 1. Continue to monitor the patient's diabetes with Accu-Cheks before meals and at bedtime. 2. Continue to monitor the patient's blood pressure, adjust medications as needed. 3. Continue the patient's present medications. 4. Monitor the patient's renal indices for renal insufficiency. 5. Stress ulcer prophylaxis. 6. Decubitus precautions. 7. Fletcher catheter care. 8. Continue PT and OT. Job ID: [id number]
[2018-09-29] MEDS: Glimepiride 2 MG TAB PO SCH (08:18)
[2018-09-29] MEDS: Cefdinir 300 MG CAP PO SCH ×2 (08:18→20:51)
[2018-09-29] MEDS: Carbidopa/Levodopa 25-250 mg Tablet PO SCH ×4 (08:18→20:51)
[2018-09-29] MEDS: Clotrimazole 1% Cream 15 GM TUBE TOP SCH ×2 (08:20→20:52)
[2018-09-29] MEDS: Atorvastatin Calcium 10 MG TAB PO SCH (20:51)
[2018-09-29] MEDS: Enoxaparin Sodium 40 MG/0.4 ML SYRINGE SC SCH (20:51)
[2018-09-29] MEDS: Famotidine 20 MG TAB PO SCH (20:52)
[2018-09-30] MEDS: Levothyroxine Sodium 50 MCG TAB PO SCH (05:12)
--- NOTE | 2018-09-30 07:56 | PRG ---
DATE OF SERVICE: 09/30/2018 SUBJECTIVE: Mr. Severino is a very pleasant 83-year-old white male. Initially, he was admitted to [facility] with urosepsis. He was given IV antibiotics and eventually transferred to [facility] for PT and OT. He was here and doing well until he developed pericardial effusion with tamponade. He was transferred back to [facility], where he had a cardiac window done. Now, he is transferred back to [facility] for continue physical therapy and occupational therapy. He is also being followed by his urologist, Dr. Abdalla, who is considered placing a suprapubic catheter, sometimes in the future. The patient states that he is doing well. He is not having any significant problems. He states that his sugars are well controlled. OBJECTIVE: VITAL SIGNS: Today reveal blood pressure 135/61, pulse 68 to 108, respirations 20, O2 saturation 93% on room air, and T-max 98.5. GENERAL: This is a well-developed, well-nourished, obese white male, in no apparent distress at this time. HEENT: Normocephalic and nontraumatic cranium. Pupils are equally round and reactive. Extraocular movements are intact. Nose and throat are moist. NECK: Supple without masses, nodes, or bruits. CHEST: Clear to auscultation. No rales. No rhonchi. No wheezes are noted. No cough is heard today. HEART: Regular rate and rhythm without murmurs, gallops, or rubs. ABDOMEN: Soft, obese, nontender without organomegaly. Normal bowel sounds are noted in all 4 quadrants. No rebound or guarding is noted. : Fletcher catheter in place with clear urine. EXTREMITIES: No clubbing or cyanosis with continued trace edema. The patient is oriented x3. ASSESSMENT: 1. Diabetes type 2, fairly stable. 2. Hypertension. 3. Parkinson disease. 4. BPH with urinary retention. The patient's urologist, Dr. Abdalla, is considering a suprapubic catheter. 5. Hyperlipidemia. 6. Gastroesophageal reflux disease. 7. History of bladder cancer. 8. Chronic kidney disease, stage 3. 9. Degenerative joint disease. 10. Generalized weakness. PLAN: 1. Continue to monitor the patient's diabetes with Accu-Cheks before meals and at bedtime. 2. Continue to monitor the patient's blood pressure and adjust medications as needed. 3. Continue present medications. 4. Continue to monitor the patient's renal indices for renal insufficiency. 5. Stress ulcer prophylaxis. 6. Decubitus precautions. 7. Fletcher catheter care. 8. Continue physical therapy and occupational therapy. 9. Supportive care. Job ID: [id number]
[2018-09-30] MEDS: Glimepiride 2 MG TAB PO SCH (08:36)
[2018-09-30] MEDS: Cefdinir 300 MG CAP PO SCH ×2 (08:36→21:18)
[2018-09-30] MEDS: Clotrimazole 1% Cream 15 GM TUBE TOP SCH ×2 (08:36→21:19)
[2018-09-30] MEDS: Carbidopa/Levodopa 25-250 mg Tablet PO SCH ×4 (08:36→21:18)
[2018-09-30] MEDS: Atorvastatin Calcium 10 MG TAB PO SCH (21:18)
[2018-09-30] MEDS: Famotidine 20 MG TAB PO SCH (21:18)
[2018-09-30] MEDS: Enoxaparin Sodium 40 MG/0.4 ML SYRINGE SC SCH (21:19)
[2018-10-01] MEDS: Levothyroxine Sodium 50 MCG TAB PO SCH (05:24)
[2018-10-01] MEDS: Glimepiride 2 MG TAB PO SCH (09:00)
[2018-10-01] MEDS: Carbidopa/Levodopa 25-250 mg Tablet PO SCH ×4 (09:00→20:34)
[2018-10-01] MEDS: Clotrimazole 1% Cream 15 GM TUBE TOP SCH ×2 (09:00→20:34)
[2018-10-01] MEDS: Cefdinir 300 MG CAP PO SCH ×2 (09:01→20:34)
--- NOTE | 2018-10-01 15:04 | PRG ---
DATE OF SERVICE: 10/01/2018 SUBJECTIVE: Mr. Severino is doing well, denies any complaints, resting comfortably, tolerating his therapy. Advised nursing to try to titrate his oxygen off. He is only on 1 L. No family at bedside. OBJECTIVE: VITAL SIGNS: He is afebrile. Heart rate is 64, respirations 18, oxygen saturation 96% on 1 L, blood pressure is 135/66. CARDIOVASCULAR: S1 and S2 plus. RESPIRATORY: Normal vesicular breath sounds. ABDOMEN: Soft, nontender. Bowel sounds heard in all quadrants. EXTREMITIES: Without cyanosis or clubbing. Edema has pretty much resolved. Does have some chronic stasis dermatitis changes. CENTRAL NERVOUS SYSTEM: AAO x3. Cranial nerves 2 through 12 intact. Minimal rigidity from his Parkinson's as well as tremors. IMPRESSION: 1. Parkinson disease. 2. Benign prostatic hypertrophy. 3. Urinary retention requiring Fletcher catheter. 4. History of bladder tumor. 5. Diabetes mellitus type 2. 6. Hypertension. 7. Dyslipidemia. 8. Pericardial effusion, status post pericardial window placement. 9. Recurrent urinary tract infection. PLAN: 1. Continue current medications. 2. 1800-calorie heart healthy ADA diet. 3. DVT and stress ulcer prophylaxis. 4. Decubitus precautions. 5. Routine laboratory values. 6. Titrate oxygen. 7. Discussed with the patient in detail. All questions answered. Job ID: [id number]
[2018-10-01] MEDS: Enoxaparin Sodium 40 MG/0.4 ML SYRINGE SC SCH (20:34)
[2018-10-01] MEDS: Atorvastatin Calcium 10 MG TAB PO SCH (20:34)
[2018-10-01] MEDS: Famotidine 20 MG TAB PO SCH (20:34)
[2018-10-02] MEDS: Levothyroxine Sodium 50 MCG TAB PO SCH (05:06)
[2018-10-02] MEDS: Clotrimazole 1% Cream 15 GM TUBE TOP SCH ×2 (08:38→20:07)
[2018-10-02] MEDS: Glimepiride 2 MG TAB PO SCH (08:38)
[2018-10-02] MEDS: Carbidopa/Levodopa 25-250 mg Tablet PO SCH ×4 (08:38→20:07)
[2018-10-02] MEDS: Cefdinir 300 MG CAP PO SCH ×2 (08:38→20:07)
--- NOTE | 2018-10-02 13:13 | PRG ---
DATE OF SERVICE: 10/02/2018 SUBJECTIVE: Mr. Severino is doing well, denies any complaints, just finished his lunch, waiting for his to come after attending the weekly case conference. OBJECTIVE: VITAL SIGNS: He is afebrile. Heart rate is 65, respirations 18, oxygen saturation 93% on room air, and blood pressure 143/64. CARDIOVASCULAR: S1 and S2 plus. RESPIRATORY: Normal vesicular breath sounds. ABDOMEN: Soft and nontender. Bowel sounds heard in all quadrants. EXTREMITIES: Without cyanosis or clubbing. Chronic stasis dermatitis. Much improved edema. CENTRAL NERVOUS SYSTEM: Awake and responsive. Cranial nerves 2 through 12 intact. Improving deconditioning. IMPRESSION: 1. Parkinson disease. 2. Urinary retention, requiring Fletcher catheter. 3. History of bladder tumor. 4. Pericardial effusion, status post pericardial window. 5. Diabetes mellitus, type 2. 6. Hypertension. 7. Dyslipidemia. 8. Gastroesophageal reflux disease. PLAN: 1. Continue current medications. 2. 1800-calorie heart healthy ADA diet. 3. Fletcher catheter care. 4. DVT and stress ulcer prophylaxis. 5. Decubitus precautions. 6. Accu-Cheks with sliding scale coverage. 7. Monitor blood pressure and adjust medications as needed. 8. Routine laboratory values. 9. Discussed with the patient in detail. All questions answered. Continue PT/OT. Job ID: [id number]
[2018-10-02] MEDS: Atorvastatin Calcium 10 MG TAB PO SCH (20:07)
[2018-10-02] MEDS: Enoxaparin Sodium 40 MG/0.4 ML SYRINGE SC SCH (20:08)
[2018-10-02] MEDS: Famotidine 20 MG TAB PO SCH (20:08)
[2018-10-03] MEDS: Levothyroxine Sodium 50 MCG TAB PO SCH (05:13)
[2018-10-03] MEDS: Glimepiride 2 MG TAB PO SCH (08:09)
[2018-10-03] MEDS: Carbidopa/Levodopa 25-250 mg Tablet PO SCH ×4 (08:09→20:00)
[2018-10-03] MEDS: Cefdinir 300 MG CAP PO SCH ×2 (08:09→20:00)
[2018-10-03] MEDS: Clotrimazole 1% Cream 15 GM TUBE TOP SCH ×2 (08:10→20:00)
[2018-10-03] MEDS: Atorvastatin Calcium 10 MG TAB PO SCH (20:00)
[2018-10-03] MEDS: Famotidine 20 MG TAB PO SCH (20:00)
[2018-10-03] MEDS: Enoxaparin Sodium 40 MG/0.4 ML SYRINGE SC SCH (20:00)
[2018-10-04] MEDS: Levothyroxine Sodium 50 MCG TAB PO SCH (05:43)
[2018-10-04 07:44] VITALS: BP 122/60; TEMP 98
[2018-10-04] MEDS: Glimepiride 2 MG TAB PO SCH (08:17)
[2018-10-04] MEDS: Carbidopa/Levodopa 25-250 mg Tablet PO SCH ×3 (08:18→16:22)
[2018-10-04] MEDS: Clotrimazole 1% Cream 15 GM TUBE TOP SCH (08:18)
[2018-10-04] MEDS: Cefdinir 300 MG CAP PO SCH (08:18)
--- NOTE | 2018-10-05 07:39 | DIS ---
DATE OF ADMISSION: 09/20/2018 DATE OF DISCHARGE: 10/04/2018 PRINCIPAL DIAGNOSES: 1. Pericardial effusion with tamponade physiology, requiring pericardial window placement. 2. Deconditioning, much improved. 3. Diabetes mellitus type 2. 4. Hypertension. 5. Dyslipidemia. 6. Parkinson disease. 7. Degenerative joint disease. 8. History of bladder cancer. 9. History of benign prostatic hypertrophy and urinary retention requiring chronic indwelling Fletcher. 10. Gastroesophageal reflux disease. COMPLICATIONS: None. ADVERSE REACTIONS: None. PROCEDURES: None. CONSULTATIONS: None. HOSPITAL COURSE: The patient was admitted after undergoing a pericardial window for pericardial effusion with tamponade physiology. This was diagnosed during his stay in [place] when he had an episode of shortness of breath at night, requiring him to sit up to be able to breathe. He had no history of heart disease. I ordered an echocardiogram, which showed the pericardial effusion with tamponade physiology. He underwent the procedure without any problems and since he has been here, he has been slowly improving with therapy and has deemed to have reached maximum medical improvement. He was deemed stable for discharge to home. His is coming this afternoon to pick him up. The patient denies any concerns or questions and is excited about going home. OBJECTIVE: VITAL SIGNS: He is afebrile. Heart rate 66, respirations 20, oxygen saturation 95% on room air, and blood pressure 122/60. HEENT: Normocephalic and atraumatic. CARDIOVASCULAR: S1, S2 plus. Rate and rhythm regular. RESPIRATORY SYSTEM: Normal vesicular breath sounds heard in all lung villeda. ABDOMEN: Soft, nontender. Bowel sounds heard in all quadrants. EXTREMITIES: Without cyanosis, clubbing. Changes of chronic stasis dermatitis. CENTRAL NERVOUS SYSTEM: Awake and responsive. Cranial nerves 2 through 12 intact. Minimal rigidity. No tremors noted currently. LABORATORY DATA: Blood sugars are 133, 116, 181, 112, and 150. IMPRESSION: 1. Diabetes mellitus type 2. 2. Hypertension. 3. Dyslipidemia. 4. Parkinson disease. 5. Degenerative joint disease. 6. History of bladder cancer. 7. Benign prostatic hypertrophy and urinary retention. 8. Gastroesophageal reflux disease. 9. Pericardial effusion, status post pericardial window placement. PLAN: Continue current medications. The patient states that he does not need any prescriptions. DISCHARGE MEDICATIONS: Will be, 1. Tylenol 1000 mg q.6 p.r.n. 2. Lipitor 10 mg daily. 3. Sinemet 25/250 one tablet q.i.d. 4. Lotrimin 1% cream b.i.d. 5. Pepcid 20 mg daily. 6. Amaryl 1 mg daily. 7. Synthroid 50 mcg daily. 8. Toprol-XL 25 mg daily. 9. MiraLAX 17 g in 8 ounces of water daily. 10. Senokot S one tablet p.o. b.i.d. p.r.n. 11. He is on Omnicef 300 mg p.o. b.i.d., but today will be his last day. This was presumed UTI, which urine culture grew Pseudomonas. The patient is advised to follow up with his urologist and his primary care physician in the next 3 to 5 days. The patient was advised to call us with any questions or concerns. His is not at the bedside. Total time spent on discharge 35 minutes. Job ID: [id number]
== END 2018-10-04 17:00 | disposition home health service (06) | DRG 315 ==
LOC: NAV ACUTE 16:28
PROVIDERS: ADMIT Internal Medicine; ATTEND Internal Medicine
PROC: 0T2BX0Z Change Drainage Device in Bladder, External Approach (ICD-10-PCS; principal; 2018-09-25)
DX: I31.3 Pericardial effusion (noninflammatory) (principal); N39.0 Urinary tract infection, site not specified; G20 Parkinson's disease; R33.9 Retention of urine, unspecified; E78.5 Hyperlipidemia, unspecified; E03.9 Hypothyroidism, unspecified; R53.81 Other malaise; I12.9 Hypertensive chronic kidney disease with stage 1 through stage 4 chronic kidney disease, or unspecified chronic kidney disease; E11.22 Type 2 diabetes mellitus with diabetic chronic kidney disease; K21.9 Gastro-esophageal reflux disease without esophagitis; I31.4 Cardiac tamponade; N40.1 Benign prostatic hyperplasia with lower urinary tract symptoms; R33.8 Other retention of urine; M19.90 Unspecified osteoarthritis, unspecified site; N49.2 Inflammatory disorders of scrotum; Z85.51 Personal history of malignant neoplasm of bladder; Z90.49 Acquired absence of other specified parts of digestive tract; Z90.89 Acquired absence of other organs; Z88.1 Allergy status to other antibiotic agents
CPT/HCPCS: 36416; 71045; 80048; 85025; 87070; 87077; 87186; 87205; J1650